=== PATIENT | female | born 1955 | race Caucasian/White ===

== ENCOUNTER → 2017-06-15 10:52 | Outpatient (CLI) | payer BC, SELFPAY ==
[2017-06-15 12:25] LABS: Amphetamine Urine VISTA NEGATIVE (<1000 ng/mL); Barbiturate Urine VISTA NEGATIVE (< 200 ng/mL); Benzodiazepine Urine VISTA NEGATIVE (< 200 ng/mL); Cocaine Urine VISTA NEGATIVE (< 300 ng/mL); Ecstacy Urine VISTA NEGATIVE (< 500 ng/mL); Methadone Urine VISTA NEGATIVE (< 300 ng/mL); PCP Urine VISTA NEGATIVE (< 25 ng/mL); THC Urine VISTA NEGATIVE (< 50 ng/mL); Vista UDS pH Range 6
== END ==
PROVIDERS: Family Provider Family Medicine; PCP Family Medicine; Visit Provider Anesthesiology Pain Medicine
DX: F11.20 Opioid dependence, uncomplicated (principal)
CPT/HCPCS: 80307

== ENCOUNTER → 2018-02-20 10:46 | Outpatient (CLI) | payer BC, SELFPAY ==
[2016-05-26 21:24] VITALS: BMI 25.2
[2018-02-20 11:59] LABS: Amphetamine Urine VISTA NEGATIVE (<1000 ng/mL); Barbiturate Urine VISTA NEGATIVE (< 200 ng/mL); Benzodiazepine Urine VISTA NEGATIVE (< 200 ng/mL); Cocaine Urine VISTA NEGATIVE (< 300 ng/mL); Ecstacy Urine VISTA NEGATIVE (< 500 ng/mL); Methadone Urine VISTA NEGATIVE (< 300 ng/mL); PCP Urine VISTA NEGATIVE (< 25 ng/mL); THC Urine VISTA NEGATIVE (< 50 ng/mL); Vista UDS pH Range 6
== END ==
PROVIDERS: Family Provider Family Medicine; PCP Family Medicine; Referring Provider Anesthesiology Pain Medicine; Visit Provider Anesthesiology Pain Medicine
DX: F11.20 Opioid dependence, uncomplicated (principal)
CPT/HCPCS: 80307

== ENCOUNTER 2018-06-12 14:02 | Emergency (ER) | payer BC, SELFPAY ==
[2018-06-12 14:03] VITALS: BP 153/82; PULSE 89; RESP 16; TEMP 35.8; O2SAT 94; BMI 24.7
--- NOTE | 2018-06-12 14:36 | ED.VIS.GEN ---
History of Present Illness Chief Complaint: Weakness Detail of Chief Complaint: Orthostatic symptoms and nausea Informant: Patient, Significant Other Onset: Yesterday Context: Sudden Onset Timing: Continuous - Nausea is continuous, Intermittent - Lightheadedness with standing Quality: Lightheadedness not vertigo Location: Residents Current Severity: Mild Maximum Severity: Moderate Worsened by: Standing Relieved by: Supine position Associated Symptoms: No cardiac, respiratory, constitutional or urologic symptoms Narrative: Patient presents with chief complaint of orthostatic symptoms that are intermittent and present when she stands. She also complains of persistent nausea. She denies vomiting or diarrhea. She denies dysuria, frequency, urgency or hematuria. She denies fever, chills or night sweats. Denies weight gain or weight loss. She denies ocular, visual auditory symptoms. She denies cardiac or respiratory symptoms. Prior similar symptoms: No Recent Illness/Hospitalization: Yes - Past Medical History (1) Slade's esophagus Status: Chronic (2) Generalized anxiety disorder Status: Chronic (3) History of Ataxia of unclear etiology Status: Chronic (4) History of DVT (deep vein thrombosis) Status: Chronic (5) History of fibromyalgia Status: Chronic (6) History of hypertension Status: Chronic (7) History of migraine Status: Chronic (8) History of ulcerative colitis Status: Chronic (9) Tobacco use disorder Status: Chronic Past Medical History - Allergies and Home Meds Allergies/Adverse Reactions: Allergies Antihistamines - Alkylamine Allergy (Verified 06/12/18 14:05) Hives ondansetron HCl [From Zofran] Allergy (Verified 06/12/18 14:05) Hives promethazine HCl [From Phenergan] Allergy (Verified 06/12/18 14:05) Hives adhesive Adverse Reaction (Intermediate, Verified 06/12/18 14:05) Other Primary Care Physician: Lauro Martinez MD [Primary Care Provider] - Prior records reviewed: Yes Surgical History: appendectomy, hysterectomy Smoking Status: Current every day smoker Review of Systems General: Denies: Chills, Fever, Malaise, Sweats Eyes: Denies: Visual changes - bilaterally, Blurred Vision - bilaterally ENT: Denies: Rhinorrhea, Sore throat Cardiovascular: Denies: Chest pain, Palpitations, Heart racing, -, - Respiratory: Denies: Dyspnea, Cough, Sputum, Dyspnea on exertion, Orthopnea, Paroxysmal nocturnal dyspnea, -, - Gastrointestinal: Reports: Nausea. Denies: Abdominal pain, Vomiting, Diarrhea, Constipation, Melena, Hematochezia, -, - Musculoskeletal: Denies: Myalgias, Arthralgias, Neck pain, Back pain, Swelling, Extremity Pain Skin: Denies: Rash, Wounds Neurological: Reports: Weakness. Denies: Headache, Parasthesia, Numbness Endocrine: Denies: Polyuria, Polydipsia Hematologic: Denies: Easy bruising, Easy bleeding Allergy: Denies: Uticaria, Swelling of the mouth Physical Exam Vital Signs/Narrative: Vital Signs Temp Pulse Resp BP Pulse Ox 06/12/18 14:03 96.5 F L 89 16 153/82 H 94 Inital Vital Signs reviewed: Yes General: Well nourished, Well developed, No Acute Distress Head: Normocephalic, Atraumatic Eyes: Perrl, EOMI. Negative for: Pale conjunctiva, Scleral icterus ENT: No rhinorrhea, Dry mucous membranes Neck: Supple, Nontender Cardiovascular: Regular rate, Regular rhythm, No murmurs Respiratory: No distress, CTA bilaterally, Chest nontender Abdomen: Soft, Nontender, Nondistended, Normal bowel sounds Back: Nontender, Normal Inspection Extremities: Nontender, No edema Skin: Normal color, No rash Neurological: Alert, Oriented x3, Cranial nerves II-XII grossly intact, Normal Strength, Normal Sensation Psychological: Normal affect, Normal Mood Diagnostic/Tx/Re-eval Laboratory Results 06/12/18 06/12/18 14:30 14:30 WBC 10.9 RBC 5.37 Hgb 15.1 H Hct 46.0 MCV 85.7 MCH 28.1 MCHC 32.8 RDW 15.3 H RDW Differential 48.3 H Plt Count 441 MPV 9.9 Immature Gran % (Auto) 0.200 Neut % (Auto) 77.3 H Lymph % (Auto) 15.8 L [place] % (Auto) 5.7 Eos % (Auto) 0.7 Baso % (Auto) 0.3 Absolute Neuts (auto) 8.4 H Absolute Lymphs (auto) 1.71 Total Counted Not Reportable Sodium 135 L Potassium 3.6 Chloride 103 Carbon Dioxide 28.0 Anion Gap 4 L BUN 4 L Creatinine 0.79 Estim Creat Clear Calc 58.40 Est GFR (MDRD) Af Amer 95 Est GFR (MDRD) Non-Af 78 BUN/Creatinine Ratio 5.1 L Glucose 114 H Calcium 8.9 - Medical Decision Making Clinically patient is dehydrated. This probably is examination of her orthostatic symptoms. 1 L of normal saline was ordered. Basic metabolic panel was obtained to assess electrode, renal function and CO2 anion gap. CBC was obtained to assess for anemia. Patient's laboratory results are unremarkable. Patient improved after IV fluids. Plan is to discharge to home. ED Disposition - Plan for ED Patient: Disposition: Home or Assisted Living Diagnosis: Orthostatic lightheadedness, Nausea, Mild dehydration Instructions: ED Weakness [facility] Referrals: Lauro Martinez MD [Primary Care Provider] - 3-5 Days
[2018-06-12] MEDS: 0.9% Normal Saline 1,000 ML 1000 ML IV (15:04)
[2018-06-12 15:10] VITALS: RESP 14
[2018-06-12 15:14] LABS: Absolute Lymphocyte Count 1.71 X10^3/ul (0.83-4.51); Absolute Neutrophil Count 8.4 X10^3/uL (2.0-7.7); Basophil# 0.03 X10^3/uL; Basophil% 0.3 % (0-1); Eosinophil# 0.08 X10^3/uL; Eosinophils% 0.7 % (0-5); Hemoglobin 15.1 g/dl (12.0-15.0); Lymphocyte # 1.71 X10^3/ul (4.0); Lymphocyte % 15.8 % (19-41); Mean Corp Hgb Conc 32.8 g/gl (32-36); Mean Corpuscular Hgb 28.1 pg (27.0-32.0); Mean Corpuscular Volume 85.7 fL (81-99); Mean Platelet Vol. 9.9 fl (6.2-12.0); Monocyte# 0.62 X10^3/uL; Monocyte% 5.7 % (0-10); Neutrophil # 8.39 X10^3/uL (2.7-7.7); Neutrophil % 77.3 % (47-70); Platelet Count 441 K/mm3 (150-450); RBC Distribution Width CV 15.3 % (11.6-14.6); RBC Distribution Width SD 48.3 fl (35.1-43.9); Red Blood Count 5.37 M/mm3 (4.2-5.4); White Blood Count 10.9 K/mm3 (4.4-11.0)
[2018-06-12 15:19] LABS: POSITIVE COUNT NO; POSITIVE DIFFERENTIAL NO; POSITIVE MORPHOLOGY NO
[2018-06-12 15:30] LABS: Anion Gap 4 (5-15); BUN 4 mg/dL (7-18); BUN/Creat Ratio 5.1 RATIO (10-20); Calcium,Total 8.9 mg/dL (8.5-10.1); Chloride 103 mmol/L (98-107); Creatinine, Serum 0.79 mg/dL (0.55-1.02); EST Glomerular Filtration Rate 78 mL/min (>60); Est Glom Filt Rate - Afr Amer 95 mL/min (>60); Glucose 114 mg/dL (74-106); Potassium 3.6 mmol/L (3.5-5.1); Sodium Level 135 mmol/L (136-145)
[2018-06-12 15:59] VITALS: BP 129/76; PULSE 70; RESP 17; O2SAT 100
== END 2018-06-12 16:01 | disposition home or self-care (01) ==
PROVIDERS: Emergency Provider Emergency Medicine; Family Provider Family Medicine; PCP Family Medicine
DX: R42 Dizziness and giddiness (principal); R11.0 Nausea; E86.0 Dehydration; F41.1 Generalized anxiety disorder; K22.70 Barrett's esophagus without dysplasia; I10 Essential (primary) hypertension; F17.200 Nicotine dependence, unspecified, uncomplicated; Z86.718 Personal history of other venous thrombosis and embolism
CPT/HCPCS: 80048; 85025; 99283; J7030; A4216

== ENCOUNTER → 2019-07-24 16:24 | Outpatient (CLI) | payer BC, SELFPAY ==
[2019-07-24 17:18] LABS: Amphetamine Urine VISTA NEGATIVE (<1000 ng/mL); Barbiturate Urine VISTA NEGATIVE (< 200 ng/mL); Benzodiazepine Urine VISTA NEGATIVE (< 200 ng/mL); Cocaine Urine VISTA NEGATIVE (< 300 ng/mL); Ecstacy Urine VISTA NEGATIVE (< 500 ng/mL); Methadone Urine VISTA NEGATIVE (< 300 ng/mL); PCP Urine VISTA NEGATIVE (< 25 ng/mL); THC Urine VISTA NEGATIVE (< 50 ng/mL); Vista UDS pH Range 6
== END ==
PROVIDERS: PCP Family Medicine; Referring Provider Anesthesiology Pain Medicine; Visit Provider Anesthesiology Pain Medicine
DX: F11.20 Opioid dependence, uncomplicated (principal)
CPT/HCPCS: 80307

== ENCOUNTER 2020-04-14 10:52 | Day surgery (SDC) | payer BC, SELFPAY ==
[2020-04-14] VITALS (7 sets, daily range): BP systolic 114–150; BP diastolic 68–86; PULSE 76–99; RESP 16–95; TEMP 36.2; O2SAT 94–100; BMI 23.6
--- NOTE | 2020-04-14 12:00 | IMM_PTH ---
PATIENT: SARAH DEUTSCH LOC: EN U#:[id number] AGE/SX: 65/F ROOM: RE04/14/[address]: Dr. Justino Mirza MD : 1955 BED: DIS: 04/14/2020 SPEC #: [id number] RECD: 04/15/20 09:36 STATUS: KISHOR REHandy #: [id number] RILEY: 04/14/20 12:[address]: Justino Mirza DEPT: IMMUNOHISTOCHEMISTRY RECD BY: Ynae Vargas ENTERED: 04/15/20 09:37 SP TYPE: IMMUNO OTHR DR: Dr. Lauro Martinez MD Tissues: B - Stomach, NOS Procedures: H Pylori (initial) PHYSICIAN & INSTITUTION [place] [id number] SPECIMEN INFORMATION: Tissue Source: B - Antrum biopsy Clinical Info: Slade's esophagus, abdomen pain, altered bowel habits Specimen Number: [id number] CPT code: 36586 METHODOLOGY: Deparaffinized sections of prefer/formalin-fixed tissue or PAP/DQ stained slides are incubated with monoclonal/polyclonal antibodies/oligonucleotide probes. Localization is made via biotin free immunoperoxidase method. Appropriate controls are performed and reacted as expected. Results on target cell population are indicated in the following table: RESULTS: ANTIBODY / CLONE RESULT Block B H Pylori (polyclonal) negative These tests were developed and their performance characteristics determined by [facility]. They may not have been cleared or approved by the U.S. Food and Drug Administration. The FDA has determined that such clearance or approval is not necessary. INTERPRETATION: B. Antrum, biopsy: Negative for Helicobacter pylori organisms. AM:jesse 04/16/2020
--- NOTE | 2020-04-14 12:00 | COLBX_PTH ---
PATIENT: SARAH DEUTSCH LOC: EN U#:[id number] AGE/SX: 65/F ROOM: RE04/14/[address]: Dr. Justino Mirza MD : 1955 BED: DIS: 04/14/2020 SPEC #: [id number] RECD: 04/14/20 13:44 STATUS: KISHOR REHandy #: [id number] RILEY: 04/14/20 12:[address]: Justino Mirza DEPT: SURGICAL PATHOLOGY RECD BY: Marissa Hodge ENTERED: 04/15/20 07:38 SP TYPE: COLON BX OTHR DR: Dr. Lauro Martinez MD Tissues: A - Small intestine biopsy B - Gastric mucous membrane C - Esophagus, NOS D - COLON BIOPSY Procedures: Surgery Specimen Level IV HEADER OPERATION: Colonoscopy, EGD ([facility] [place]) PRE-OP DIAGNOSIS: Slade's esophagus, abdomen pain, altered bowel habits TISSUE SUBMITTED: A - Small bowel biopsy, B - Antrum biopsy for histo and H. pylori, C - Distal esophagus biopsy, D - Random colonic biopsy MICROSCOPIC DIAGNOSIS A. Small bowel, biopsy: No significant pathologic change. B. Gastric antrum, biopsy: Mild chronic gastritis. C. Distal esophagus, biopsy: Gastroesophageal junction mucosa with mild chronic inflammation. No evidence of intestinal metaplasia. See comment. D. Colon, random biopsy: No pathologic change. AM:jesse 04/16/2020 COMMENT B. The results of immunohistochemistry for Helicobacter pylori will be reported separately ([id number]). C. Alcian blue/PAS stain with matched control supports the above diagnosis. MICROSCOPIC DESCRIPTION Slides are reviewed. GROSS DESCRIPTION A - Received in fixative is one container labeled with the patient's name and designated small bowel biopsy. The specimen consists of one irregular fragment of light olivo soft tissue that measures 0.5 x 0.3 x 0.1 cm. The specimen is totally submitted in one cassette. B - Received in fixative is one container labeled with the patient's name and designated antrum biopsy. The specimen consists of one irregular fragment of light olivo soft tissue that measures 0.4 x 0.3 x 0.1 cm. The specimen is totally submitted in one cassette. C - Received in fixative is one container labeled with the patient's name and designated distal esophagus biopsy. The specimen consists of multiple irregular fragments of light olivo soft tissue that in aggregate measure 0.5 x 0.5 x 0.1 cm. The specimen is totally submitted in one cassette. D - Received in fixative is one container labeled with the patient's name and designated random colonic biopsy. The specimen consists of multiple irregular fragments of light olivo soft tissue that in aggregate measure 2 x 0.5 x 0.1 cm. The specimen is totally submitted in one cassette. / SJ:rg 04/15/20 TC:3 CPT: 64977 x4, 11658
--- NOTE | 2020-04-14 12:26 | HP.PCM_ITS ---
History and Physical Date of Admission: 04/14/20 Esther Morin a 65 year old female who is a consultation requested by Herlinda Salazar PA-C for an opinion regarding abdominal pain and altered bowel habits. My final recommendations will be communicated back to the requesting provider by way of shared Medical record. The patient has been seen previously, but it was more than three years ago (2014). The patient denies a family history of colon cancer. The patient had a phone encounter Herlinda on 02/14/20, leading to this consultation. That note has been reviewed and part as follows: Patient states she was sick for the past week. Nausea, vomiting, diarrhea, abdominal pain. Does not want checked for covid again. States her son had exact same symptoms and he tested negative. The patient was seen by Dr. Vergara for upper endoscopy (Slade's) and colonoscopy (ischemic colitis) 03/02/16. The procedure report has been reviewed and findings as follows: EGD Impression: - Carmelo-Jaquez Grade II reflux esophagitis. Biopsied. - Normal stomach. Biopsied. - Normal examined duodenum. Colonoscopy Impression: - The quality of the bowel preparation was fair. Two 5 mm polyps at 20 cm proximal to the anus and at 30 cm proximal to the anus. Resected and retrieved. - Diverticulosis in the sigmoid colon and in the descending colon. FINAL DIAGNOSIS 1. Gastric antrum, biopsy (A) - Gastric antral mucosa with no significant diagnostic alteration. - No morphologic evidence of Helicobacter pylori organisms. 2. Distal esophagus and colon polyp from 30 cm, biopsies (B) - Colonic tubular adenoma. - Mildly inflamed cardiofundic-type mucosa and reactive squamous mucosa, negative for intestinal metaplasia or dysplasia. 3. Colon polyp at 20 cm, biopsy (C) - Fragments of hyperplastic polyp. I have reviewed the procedure and pathology reports, as well as the images, with the patient. Dr. Vergara recommended surveillance EGD in 2 years and surveillance colonoscopy in 5 years. Taking clopidogrel due to a stent and will be able to hold that for the procedure. She has a complicated medical history that includes a left sided colectomy in 2012. Multiple abdominal surgeries and lysis of adhesions. Presenting complaint: The patient presents today reporting that she only leaves the house for doctor's appointments. Taking pantoprazole 40mg twice a day. Taking compazine. Has had to increase the dose since December. It gives her some relief. No turmieric or high dose Zinc. Reporting my stomach is always unsettled, always gurgling and spasming. She has to have a bowel movement after eating. She might have to get up during the night to have a bowel movements. She will take a stool softener if she hasn't gone that day. No blood or black stool. She will take the Imodium if she has to go somewhere, but tries to limit that. Decreased appetite. She can feel full after a few bites. She might have a small snack throughout the day instead of eating a meal. REVIEW OF SYSTEMS: GENERAL: No weight loss, malaise or fevers RESPIRATORY: Asthma. Mild HUBERT. Negative for current issues CARDIOVASCULAR: Hypertension. Negative for chest pain or JO GI: As reported above RECORDING CLERK: Negative for abnormal vaginal bleeding, abnormal vaginal discharge. PSYCH:Anxiety and panic disorder MUSCULOSKELETAL: Fibromyalgia HEMATOLOGY/LYMPHOLOGY Negative for prolonged bleeding, bruising easily or swollen nodes ENDOCRINE: Negative for cold or heat intolerance, polyuria, polydipsia and goiter NEURO: Migraine headaches All other reviewed and negative other than HPI. PAST MEDICAL HISTORY PAST MEDICAL HISTORY Diagnosis Date ? Anxiety 12/11/2013 ? Asthma ? Atrioventricular block, unspecified Promus stent placed in 01/2008 ? Slade's esophagus ? Carpal tunnel syndrome ? Chronic interstitial cystitis ? Closed fracture of one or more phalanges of foot 06/12/2012 ? Coronary artery disease due to calcified coronary lesion 09/22/2014 [place] age 52; Stented ( last seen Dr. Rosario 2012) -- 01/25/08 ? Current use of proton pump inhibitor 07/06/2016 Mg checked 03/2017 ? Dysthymia 07/28/2015 ? Elevated fasting blood sugar 09/26/2014 ? Esophagitis, unspecified ? Essential hypertension 09/22/2014 ? Fibromyalgia FIBROMYALGIA -- patient stopped seeing Dr. Howard ? Gastroesophageal reflux disease without esophagitis 09/26/2014 Has break through symptoms if only does once a day. (talk to patient about being on omeprazole and plavix) ? History of bowel infarction Colon: S/P removal of 1ft. Cause not known ? Hypokalemia 03/05/2013 ? Infarction of colon (HCC) S/P removal of 1ft. Cause not known ? Inflammatory arthropathy ? Insomnia, unspecified 03/29/2006 ? Irritable bowel syndrome ? Left leg pain 03/05/2013 ? Low vitamin B12 level 03/05/2013 ? Migraine without aura and without status migrainosus, not intractable ? Mixed hyperlipidemia 01/19/2015 ? Mood disorder (HCC) 03/05/2013 ? Nocturnal hypoxia 03/05/2013 On O2 at night ? Obstructive sleep apnea 05/16/2013 Mild, no indication that treatment needed. ? Panic disorder 02/16/2010 ? Smoker 04/20/2009 Age 18 at onset 12-1 PPD ? Vitamin D deficiency 04/24/2009 PAST SURGICAL HISTORY PAST SURGICAL HISTORY Procedure Laterality Date ? APPENDECTOMY 2002 ? CARPAL TUNNEL 2002 x 2 ? CC PTCA STENT 01/25/2008 [facility] (jorge alberto) Promus stents ? COLECTOMY PARTIAL W ANASTOM 12/2012 left side ? COLONOSCOP W/ OR W/O BRSH SPEC 03/20/02 Colonoscopy ? COLONOSCOP W/ OR W/O BRSH SPEC 11/26/2007 Colonoscopy ? COLONOSCOP W/ OR W/O BRSH SPEC 02/24/11 normal colonoscopy ? COLONOSCOPY Dr. Molina - beatrice prior to the colectomy ? COLONOSCOPY N/A 03/02/2016 MAC ? CYSTO.PANENDO Cystoscopy ? CYSTOSCOPY,DIL BLADDER,LOCAL ANESTH ? D&C, DIAG AND/OR THERAPEUTIC Dilation & curettage ? EGD N/A 03/02/2016 MAC ? EGD W/O BRSH SPECIMEN W/BX 06/15/07 ? EGD W/O BRSH SPECIMEN W/BX 05/13/09 ? EGD W/O BRSH SPECIMEN W/BX 02/24/11 esophagitis, gastritis ? EGD W/O OR W/BRUSH/WASH 11/26/2007 EGD ? F HYSTERECTOMY 1992 ? LASIK 1999 ? PAST SURGICAL HISTORY OF 07/2004 left shoulder OR ? PAST SURGICAL HISTORY OF 1990 right shoulder OR ? PAST SURGICAL HISTORY OF 06/05/07 heart cath ? PAST SURGICAL HISTORY OF multiple multiple surgeries for adhesions (5-6) -- last about year 1999 ? PAST SURGICAL HISTORY OF 06/2012 broken toe ? REMOVAL OF OVARY/TUBE(S) Salpingo-oophorectomy ? RT HEART CATH mid july 2009 jorge alberto FAMILY HISTORY FAMILY HISTORY Problem Relation Age of Onset ? Heart Mother [place] age 65 ? Stroke Father TIA's ? Cancer Father lung ? Heart Sister stent placed age 50 ? Colon Cancer Other none CURRENT MEDICATIONS Current Outpatient Medications Medication Sig Dispense Refill ? prochlorperazine (COMPAZINE) 10 mg tablet Take 1 tablet by mouth every 6 hours as needed. 12 tablet 3 ? potassium chloride ER (K-DUR, KLOR-CON) 20 mEq tablet Take 1 tablet by mouth twice daily. 180 tablet 0 ? metoprolol succinate ER (TOPROL XL) 100 mg Take 1 tablet by mouth once daily. 90 tablet 1 ? busPIRone (BUSPAR) 15 mg tablet Take 1 tablet by mouth twice daily. ? hydrOXYzine HCl (ATARAX) 25 mg tablet TAKE 1/2 TO 1 TABLET BY MOUTH ONE TO TWO HOURS BEFORE BED 90 tablet 1 ? QUEtiapine (SEROQUEL) 100 mg tablet Take 3 tablets by mouth once daily. 270 tablet 1 ? pantoprazole DR (PROTONIX) 40 mg tablet Take 1 tablet by mouth twice daily. Take on empty stomach, 1/2 hr before meal. 180 tablet 1 ? atorvastatin (LIPITOR) 80 mg tablet Take 1 tablet by mouth once daily. 90 tablet 1 ? citalopram (CELEXA) 40 mg tablet Take 1 tablet by mouth once daily. 90 tablet 3 ? clopidogrel (PLAVIX) 75 mg tablet Take 1 tablet by mouth once daily. 90 tablet 3 ? albuterol HFA (PROVENTIL HFA, VENTOLIN HFA) 90 mcg/actuation inhaler Inhale 2 Puffs as instructed four times daily as needed. FOR WHEEZING AND SHORTNESS OF BREATH. 1 Inhaler 5 ? nitroglycerin sublingual (NITROQUICK) 0.4 mg SL tablet Dissolve 1 tablet under the tongue as needed. DISSOLVE ON TONGUE FOR CHEST PAIN. IF NO PAIN RELIEF, CALL 911 1 Bottle of 25 1 ? galcanezumab-gnlm 120 mg/mL subcutaneous pen injector (EMGALITY) Inject 1 Pen subcutaneously once every month. Refrigerate. Do not shake. ? Cholecalciferol, Vitamin D3, 2,000 unit cap Take 1 capsule by mouth once daily. ? albuterol (PROVENTIL) 2.5 mg /3 mL (0.083 %) nebulizer solution Use 3 mL via nebulizer every 4 hours as needed for Wheezing/Shortness of Breath. Use over 5- 15minutes. 25 Vial 3 ? aspirin, enteric coated (ECOTRIN LOW STRENGTH) 81 mg EC tablet Take 1 tablet by mouth once daily. 90 tablet 3 ? COMPOUNDED PRESCRIPTION Portable nebulizer unit Dx: 493.90 # one with no refill 1 Device 0 ? MULTIVITAMIN TABLET Take one(1) tablet daily. 0 ? CALCIUM 600 TABLET Take one(1) tablet two(2) times daily. 0 No current facility-administered medications for this visit. Patient is . She smokes 1-2 ppd. Reports her alcohol use as never. PHYSICAL EXAMINATION: Blood pressure 138/82, pulse 78, height 157.6 cm (5' 2.05), weight 60.3 kg (133 lb), SpO2 94 %. General Appearance: Well appearing, alert, in no acute distress, well-hydrated, well nourished. Skin: Skin color, texture, turgor normal, no suspicious rashes or lesions. Head: Normocephalic, no abnormalities. Eyes: Anicteric sclera. Neck: Supple, no adenopathy. Lungs: Lungs clear to auscultation. Heart: RRR without murmur. Abdomen: Abdomen soft, non-tender. Bowel sounds normal. No masses, organomegaly. Extremities: No deformities, edema. Peripheral Pulses: Normal. Neurologic: Gait normal. Sensation grossly intact. Impression: Slade's esophagus 2)altered bowel lhabits Plan: The patient will be scheduled for an upper endoscopy as well as a colonoscopy. Preparation for the procedures, using Miralax prep as the laxative, have been explained in detail. The risks, benefits, anticipated outcomes and possible complications were mentioned, including including failure to complete the endoscopy and perforation. I explained the procedure in understandable terms and the patient was given printed material concerning the planned procedure. The patient had the opportunity to ask questions concerning the planned procedure. The patient freely consents to the planned procedure. The patient is scheduled for a procedure at [facility]. I have explained that his/her health and safety, as well as that of our staff is important. The risk of exposure to, or potential harm posed by the COVID-19 virus with having a procedure at this time is as minimal as possible. Measures are being taken to minimize any potential risk of infection. I have explained that he/she will see that the staff will be wearing masks and gloves. The patient's temperature will be taken on arrival, they will be asked a series of questions to reassess current wellness, and asked to use hand corporate compliance manager foam. The bed areas are cleaned and the procedure rooms are thoroughly disinfected between patients. Procedure rooms will be alternated to give the disinfection more than enough time to ensure adequate protection for all involved. The patient is encouraged to call with any questions or concerns, or should there be any change in health status between now and the scheduled procedure. I have personally interviewed and examined this patient. I have read the information that the PULPWOOD CONTRACTOR documented in this encounter. I spent 30 minutes in the visit, with more than 50% of the total [id number] time of the visit in counseling / coordination of care. Astrid Ortega RN LOST CHARGE CARD CLERK.SHELLFISH GROWER I have re-examined the patient. There are no clinical changes since date of exam.
--- NOTE | 2020-04-14 12:55 | OP.EGD_ITS ---
Patient Name: Esther Morin Procedure Date: 04/14/2020 11:49 AM Date of : 1955 Age: 65 Procedure: Upper GI endoscopy Indications: Slade's esophagus, Nausea Providers: Justino Mirza MD Referring MD: Lauro Martinez MD Medicines: See the Anesthesia note for documentation of the administered medications Patient Profile: This is a 65 year old female. Refer to note in patient chart for documentation of history and physical. Complications: No immediate complications. Procedure: Pre-Anesthesia Assessment: - Prior to the procedure, a History and Physical was performed, and patient medications and allergies were reviewed. The patient's tolerance of previous anesthesia was also reviewed. The risks and benefits of the procedure and the sedation options and risks were discussed with the patient. All questions were answered, and informed consent was obtained. Prior Anticoagulants: The patient has taken Plavix (clopidogrel), last dose was 5 days prior to procedure. ASA Grade Assessment: III - A patient with severe systemic disease. After reviewing the risks and benefits, the patient was deemed in satisfactory condition to undergo the procedure. After obtaining informed consent, the endoscope was passed under direct vision. Throughout the procedure, the patient's blood pressure, pulse, and oxygen saturations were monitored continuously. The gastroscope was introduced through the mouth, and advanced to the second part of duodenum. The upper GI endoscopy was accomplished without difficulty. The patient tolerated the procedure well. Scope In: 12:31:12 PM Scope Out: 12:37:37 PM Total Procedure Duration Time 0 hours 6 minutes 25 seconds Findings: Non-severe esophagitis with no bleeding was found at the gastroesophageal junction. Biopsies were taken with a cold forceps for histology. Localized mild inflammation characterized by erythema and linear erosions was found in the prepyloric region of the stomach. Biopsies were taken with a cold forceps for Helicobacter pylori testing. The examined duodenum was normal. Biopsies for histology were taken with a cold forceps for evaluation of celiac disease. Impression: - Non-severe reflux esophagitis. Rule out Slade's esophagus. Biopsied. - Gastritis. Biopsied. - Normal examined duodenum. Biopsied. Recommendation: - Await pathology results. - Repeat upper endoscopy in 3 years for surveillance. - Return to nurse practitioner in 1 week. Coretta Ortega - Continue present medications. - Resume Plavix (clopidogrel) at prior dose tomorrow. Procedure Code(s): --- Professional --- 97149, Esophagogastroduodenoscopy, flexible, transoral; with biopsy, single or multiple Diagnosis Code(s): --- Professional --- K21.0, Gastro-esophageal reflux disease with esophagitis K29.70, Gastritis, unspecified, without bleeding K22.70, Slade's esophagus without dysplasia R11.0, Nausea CPT copyright 2017 [employer]. All rights reserved. The codes documented in this report are preliminary and upon automotive shop foreman review may be revised to meet current compliance requirements. MD Justino Fountain MD 04/14/2020 12:55:24 PM This report has been signed electronically. Number of Addenda: 0 Note Initiated On: 04/14/2020 11:49 AM
--- NOTE | 2020-04-14 12:56 | OP.CCLET_ITS ---
04/14/2020 Lauro Martinez MD Re : Upper GI endoscopy procedure for Esther Morin Dear Dr. Martinez This procedure was performed on Tuesday, April 14, 2020. My impressions and recommendations are as follows: Impressions : - Non-severe reflux esophagitis. Rule out Slade's esophagus. Biopsied. - Gastritis. Biopsied. - Normal examined duodenum. Biopsied. Recommendations : - Await pathology results. - Repeat upper endoscopy in 3 years for surveillance. - Return to nurse practitioner in 1 week. Coretta Ortega - Continue present medications. - Resume Plavix (clopidogrel) at prior dose tomorrow. My findings are described in the full procedure note, which is enclosed. If I can be of further assistance, please feel free to contact me at Doctor phone number(s): , Fax: [phone], Work: . Sincerely, MD Justino Fountain MD 04/14/2020 12:55:24 PM This report has been signed electronically.
--- NOTE | 2020-04-14 13:00 | OP.COLON_ITS ---
Patient Name: Esther Morin Procedure Date: 04/14/2020 12:37 PM Date of : 1955 Age: 65 Procedure: Colonoscopy Indications: Clinically significant diarrhea of unexplained origin Providers: Justino Mirza MD Referring MD: Lauro Martinez MD Medicines: See the Anesthesia note for documentation of the administered medications Patient Profile: This is a 65 year old female. Refer to note in patient chart for documentation of history and physical. Last Colonoscopy: February 2016. Complications: No immediate complications. Procedure: Pre-Anesthesia Assessment: - Prior to the procedure, a History and Physical was performed, and patient medications and allergies were reviewed. The patient's tolerance of previous anesthesia was also reviewed. The risks and benefits of the procedure and the sedation options and risks were discussed with the patient. All questions were answered, and informed consent was obtained. Prior Anticoagulants: The patient has taken Plavix (clopidogrel), last dose was 5 days prior to procedure. ASA Grade Assessment: III - A patient with severe systemic disease. After reviewing the risks and benefits, the patient was deemed in satisfactory condition to undergo the procedure. After I obtained informed consent, the scope was passed under direct vision. Throughout the procedure, the patient's blood pressure, pulse, and oxygen saturations were monitored continuously. The adult colonoscope was introduced through the anus and advanced to the cecum, identified by appendiceal orifice and ileocecal valve. The colonoscopy was performed without difficulty. The patient tolerated the procedure well. The quality of the bowel preparation was good. Scope In: 12:38:44 PM Scope Withdrawal Time 0 hours 6 minutes 32 seconds Scope Out: 12:49:09 PM Total Procedure Duration Time 0 hours 10 minutes 25 seconds Findings: The colon (entire examined portion) appeared normal. Biopsies for histology were taken with a cold forceps from the entire colon for evaluation of microscopic colitis. Non-bleeding internal hemorrhoids were found during retroflexion. The hemorrhoids were mild and small. A few small-mouthed diverticula were found in the sigmoid colon. No biopsies or other specimens were collected for this exam. The exam was otherwise without abnormality. The mucosa of her colon looked entirely normal. There is nothing that seemed abnormal. Impression: - The entire examined colon is normal. Biopsied. - Non-bleeding internal hemorrhoids. - Diverticulosis in the sigmoid colon. No specimens collected. - The examination was otherwise normal. Recommendation: - Discharge patient to home. - Resume previous diet. - Continue present medications. - Await pathology results. - Repeat colonoscopy in 10 years for screening purposes. - Return to nurse practitioner in 1 week. Coretta Ortega Procedure Code(s): --- Professional --- 92232, Colonoscopy, flexible; with biopsy, single or multiple Diagnosis Code(s): --- Professional --- K64.8, Other hemorrhoids R19.7, Diarrhea, unspecified K57.30, Diverticulosis of large intestine without perforation or abscess without bleeding CPT copyright 2017 [employer]. All rights reserved. The codes documented in this report are preliminary and upon labor relations consultant review may be revised to meet current compliance requirements. MD Justino Fountain MD 04/14/2020 1:00:08 PM This report has been signed electronically. Number of Addenda: 0 Note Initiated On: 04/14/2020 12:37 PM
--- NOTE | 2020-04-14 13:00 | OP.CCLET_ITS ---
04/14/2020 Lauro Martinez MD Re : Colonoscopy procedure for Esther Morin Dear Dr. Martinez This procedure was performed on Tuesday, April 14, 2020. My impressions and recommendations are as follows: Impressions : - The entire examined colon is normal. Biopsied. - Non-bleeding internal hemorrhoids. - Diverticulosis in the sigmoid colon. No specimens collected. - The examination was otherwise normal. Recommendations : - Discharge patient to home. - Resume previous diet. - Continue present medications. - Await pathology results. - Repeat colonoscopy in 10 years for screening purposes. - Return to nurse practitioner in 1 week. Coretta Ortega My findings are described in the full procedure note, which is enclosed. If I can be of further assistance, please feel free to contact me at Doctor phone number(s): , Fax: [phone], Work: . Sincerely, MD Justino Fountain MD 04/14/2020 1:00:08 PM This report has been signed electronically.
[2020-04-14] MEDS: Lactated Ringers 1,000 ML 100 ML IV (13:13)
== END 2020-04-14 13:41 | disposition home or self-care (01) ==
LOC: EN 10:53 → AC 10:53
PROVIDERS: PCP Family Medicine; Referring Provider Family Medicine; Visit Provider Surgery
PROC: 0DJD8ZZ Inspection of Lower Intestinal Tract, Via Natural or Artificial Opening Endoscopic (ICD-10-PCS; CPT 45378; principal; 2020-04-14 11:55)
DX: K22.70 Barrett's esophagus without dysplasia (principal); K21.00 Gastro-esophageal reflux disease with esophagitis, without bleeding; K29.70 Gastritis, unspecified, without bleeding; R19.7 Diarrhea, unspecified; K64.8 Other hemorrhoids; K57.30 Diverticulosis of large intestine without perforation or abscess without bleeding; K29.50 Unspecified chronic gastritis without bleeding; G47.33 Obstructive sleep apnea (adult) (pediatric); J45.909 Unspecified asthma, uncomplicated; E78.2 Mixed hyperlipidemia; F34.1 Dysthymic disorder; F41.0 Panic disorder [episodic paroxysmal anxiety]; G43.009 Migraine without aura, not intractable, without status migrainosus; I10 Essential (primary) hypertension; I25.10 Atherosclerotic heart disease of native coronary artery without angina pectoris; F17.210 Nicotine dependence, cigarettes, uncomplicated; M79.7 Fibromyalgia; Z79.82 Long term (current) use of aspirin; Z79.02 Long term (current) use of antithrombotics/antiplatelets; Z90.710 Acquired absence of both cervix and uterus; Z90.721 Acquired absence of ovaries, unilateral; Z95.5 Presence of coronary angioplasty implant and graft
CPT/HCPCS: 43239; 45380; 87426; 88305; 88342; C9803; J7120

== ENCOUNTER 2020-04-21 08:33 | Outpatient (RCR) | payer BC, SELFPAY ==
[2020-04-14 11:10] VITALS: BMI 23.6
[2020-04-21] MEDS: COVID-19 VACC, MRNA(PFIZER)/PF 30 MCG/0.3 ML SYRINGE IM (11:48)
[2020-05-12] MEDS: COVID-19 VACC, MRNA(PFIZER)/PF 30 MCG/0.3 ML SYRINGE IM (11:37)
== END 2020-04-21 23:59 ==
LOC: IMMUN 08:33
PROVIDERS: PCP Family Medicine; Visit Provider Family Medicine
DX: Z23 Encounter for immunization (principal)
CPT/HCPCS: 0001A; 0002A; 91300

== ENCOUNTER → 2020-04-22 12:59 | Outpatient (CLI) | payer BC, SELFPAY ==
[2020-04-14 11:10] VITALS: BMI 23.6
[2020-04-22 13:45] LABS: Amphetamine Urine VISTA NEGATIVE (<1000 ng/mL); Barbiturate Urine VISTA NEGATIVE (< 200 ng/mL); Benzodiazepine Urine VISTA NEGATIVE (< 200 ng/mL); Cocaine Urine VISTA NEGATIVE (< 300 ng/mL); Ecstacy Urine VISTA NEGATIVE (< 500 ng/mL); Methadone Urine VISTA NEGATIVE (< 300 ng/mL); PCP Urine VISTA NEGATIVE (< 25 ng/mL); THC Urine VISTA NEGATIVE (< 50 ng/mL); Vista UDS pH Range 6
== END ==
PROVIDERS: PCP Family Medicine; Referring Provider Anesthesiology Pain Medicine; Visit Provider Anesthesiology Pain Medicine
DX: F11.20 Opioid dependence, uncomplicated (principal)
CPT/HCPCS: 80307

== ENCOUNTER → 2020-09-03 13:42 | Outpatient (CLI) | payer BC, SELFPAY ==
[2020-04-14 11:10] VITALS: BMI 23.6
--- NOTE | 2020-09-03 13:45 | CT_ITS ---
STUDY: LOW DOSE CT LUNG CANCER SCREENING REASON FOR EXAM: Female, 65 years old. 48 year smoker, 1-2 pack per day. Hypertension RADIATION DOSAGE (If Supplied By Facility): CTDIvol = ( 1.59 ) mGy, DLP = ( 50.43 ) mGycm TECHNIQUE: No contrast was administered. Low dose technique was utilized (average mAS-38 and kVp 120). 1.25 mm axial source images with a slice interval of 1.25-mm were reconstructed in lung windows. 2.5 mm axial source images with a slice interval of 2.5-mm were reconstructed in lung windows. 5.0 mm axial source images with a slice interval of 5.0-mm were reconstructed in soft tissue windows. Nodule measured using lung windows on PACS and/or independent workstation with automated measurement of minimum and maximum diameter. Nodule measurement reported as average diameter rounded to the nearest whole number. Growth is defined as an increase ins size of greater than 1.5 mm. COMPARISON: None. FINDINGS: There is underlying emphysema. Chronic interstitial changes in both lung gibbons with nonspecific pleural thickening. No organized infiltrate. There are noncalcified nodules in the left lower lobe on axial image 128 measuring 5.6 mm and a 1.6 cm pleural-based nodule on image 153. There is a pleural-based nodule in the right medial lung base on axial image 176 measuring 0.7 cm. Since there are no previous studies available for comparison, further evaluation of these nodules with PET/CT scan is recommended to determine if metabolic activity is present. There are no suspicious bulky lymph nodes. There are calcifications in the thoracic aorta without aneurysm. There are calcified coronary vessels. No pleural or pericardial effusions. CT/Low Dose CT Lung Screening IMPRESSION: Lung-RADS category 4B - Chest CT with or without contrast, PET/CT and/or tissue sampling can be obtained depending on the probability of malignancy and comorbidities. IMPORTANT NOTES FOR USE: ACR Lung-RADS Version 1.1 Assessment Categories Release Date: 2018 Category: Coded 0-4 bases on nodule(s) with highest degree of suspicion. Negative screen is defined as categories 1 and 2; a positive screen is defined as categories 3 and 4. Category 3 and 4A nodules that are unchanged on interval CT should be coded as category 2, and individuals returned to screening in 12 months. Category 4X: Category 3 or 4 nodules with additional imaging findings that increase the suspicion of lung cancer, such as spiculation, GGN that doubles in size in 1 year, enlarged lymph notes, etc. Category Modifiers: S (significant finding unrelated to lung cancer) Electronically Signed: Jay Esparza MD at 8:45 EDT , Service support ,
== END ==
PROVIDERS: PCP Family Medicine; Referring Provider Family Medicine; Visit Provider Family Medicine
DX: Z12.2 Encounter for screening for malignant neoplasm of respiratory organs (principal); F17.200 Nicotine dependence, unspecified, uncomplicated
CPT/HCPCS: 71271

== ENCOUNTER → 2020-10-13 12:30 | Outpatient (CLI) | payer BC, SELFPAY ==
[2020-10-13 15:11] LABS: Amphetamine Urine VISTA NEGATIVE (<1000 ng/mL); Barbiturate Urine VISTA NEGATIVE (< 200 ng/mL); Benzodiazepine Urine VISTA NEGATIVE (< 200 ng/mL); Cocaine Urine VISTA NEGATIVE (< 300 ng/mL); Ecstacy Urine VISTA NEGATIVE (< 500 ng/mL); Methadone Urine VISTA NEGATIVE (< 300 ng/mL); PCP Urine VISTA NEGATIVE (< 25 ng/mL); THC Urine VISTA NEGATIVE (< 50 ng/mL); Vista UDS pH Range 5
== END ==
PROVIDERS: PCP Family Medicine; Referring Provider Anesthesiology Pain Medicine; Visit Provider Anesthesiology Pain Medicine
DX: F11.20 Opioid dependence, uncomplicated (principal)
CPT/HCPCS: 80307

== ENCOUNTER → 2020-11-03 15:33 | Outpatient (CLI) | payer BC, SELFPAY ==
--- NOTE | 2020-11-03 14:30 | PET_ITS ---
EXAMINATION: FDG PET-CT INDICATIONS: A 65-year-old female with reported history of pulmonary nodularity. COMPARISON EXAMINATION: CT of the chest report dated 09/03/20 TECHNIQUE: Following the intravenous administration of 13.47 mCi of F-18 deoxyglucose via the left wrist, multiplanar image acquisitions of the neck, chest, abdomen and pelvis to level of mid thigh, obtained at one hour post radiopharmaceutical administration contemporaneously interpreted with the current CT of the neck, chest, abdomen and pelvis, to level of mid thigh, dated 11/03/[address] of the chest report dated 09/03/20 reveals: BLOOD GLUCOSE LEVEL:?? 124 mg/dl?HEIGHT:?66 inches?WEIGHT: 169 lbs. FINDINGS: 1. There is no quantitative scintigraphic evidence of abnormal increased glucose metabolism correlate with a non-calcified pleural-based density noted in the right lower anteromedial hemithorax-medial segment right middle lobe on review of CT of the thorax dated 11/03/20. 2. Normal physiologic distribution of the radiopharmaceutical is apparent in the hepatic and splenic parenchyma, both renal units, bladder and visualized intestinal tract. The visualized portion of the cerebral cortical-subcortical structures demonstrate symmetric and preserved glucose metabolism. Diffuse radiopharmaceutical concentration is noted in all four quadrants of the abdomen and pelvis. Facilitated tracer uptake is observed in the anterior neck, laryngeal structures extending from the anterior commissure to the arytenoid cartilage bilaterally without evidence of soft tissue thickening most consistent with physiologic radiopharmaceutical concentration. Pertinent CT findings are as follows: CHEST: There is atherosclerotic calcification defined in the thoracic aorta without evidence of dilatation-aneurysm formation. Coronary arterial calcification is observed. Atelectatic changes are defined in the left lower anterior lung. ABDOMEN AND PELVIS: There is borderline fatty metamorphosis-steatosis defined in the hepatic parenchyma. There is atherosclerotic calcification defined in the abdominal aorta without evidence of dilatation-aneurysm formation. Pelvic arterial calcification is demonstrated. Right and left inguinal soft tissue densities with fatty hilus are ametabolic. Apparent postsurgical change is manifest in the left lower anterior abdominal mesentery without evidence of increased tracer uptake. Cortical cyst formation is encountered in the left kidney. SKELETAL: Degenerative changes are noted in the cervical, thoracic and lumbar spine without evidence of increased radiopharmaceutical concentration. PET/PET/CT Tumor Base -Thigh Init IMPRESSION: 1. NEGATIVE EXAMINATION. There is no quantitative scintigraphic evidence of abnormal increased glucose metabolism to correlate with a non-calcified pleural-based density noted in the right lower anteromedial hemithorax-medial segment right middle lobe on review of CT of the thorax dated 11/03/20. 2. Anatomic stability may be ensured in the ametabolic non-calcified pleural-based density noted in the right lower anteromedial hemithorax-medial segment right middle lobe with repeat FDG PET-CT imaging and/or CT of the chest in 3-6 months if clinically indicated. (Rigoberto, Seminars in Thoracic and Cardiovascular Surgery 14:292, 2001). Electronic Signature Ken Mark D.O. Accurate Quantification of SUVs for this report are calculated using the exclusive [employer]. (U.S. Patent No. 10, [id number] 983). Standardization and correction of the FDG SUV metric via [employer] technology allow for vendor non-specific objective quantitative examination comparison and optimization of the sensitivity and specificity of the FDG PET-CT examination. Electronically Signed: Ken Mark DO at 22:44 EDT Tel , Service support ,
== END ==
LOC: ONC 15:34
PROVIDERS: PCP Family Medicine
DX: R91.1 Solitary pulmonary nodule (principal)
CPT/HCPCS: 78815; A9552

== ENCOUNTER → 2021-01-06 15:58 | Outpatient (CLI) | payer MEDICARE, OTHER, SELFPAY ==
[2021-01-06 17:18] LABS: Amphetamine Urine VISTA NEGATIVE (<1000 ng/mL); Barbiturate Urine VISTA NEGATIVE (< 200 ng/mL); Benzodiazepine Urine VISTA NEGATIVE (< 200 ng/mL); Cocaine Urine VISTA NEGATIVE (< 300 ng/mL); Ecstacy Urine VISTA NEGATIVE (< 500 ng/mL); Methadone Urine VISTA NEGATIVE (< 300 ng/mL); PCP Urine VISTA NEGATIVE (< 25 ng/mL); THC Urine VISTA NEGATIVE (< 50 ng/mL); Vista UDS pH Range 5
== END ==
PROVIDERS: PCP Family Medicine; Visit Provider Anesthesiology Pain Medicine
DX: F11.20 Opioid dependence, uncomplicated (principal)
CPT/HCPCS: 80307

== ENCOUNTER 2021-02-19 17:33 | Emergency (ER) | payer MEDICARE, OTHER, SELFPAY ==
[2021-02-19 17:33] VITALS: BP 159/89; PULSE 91; RESP 18; TEMP 35.3; O2SAT 97; BMI 24.7
[2021-02-19 19:44] VITALS: RESP 17
[2021-02-19] MEDS: Ketorolac 15 MG/ML Vial IV (20:05)
[2021-02-19] MEDS: Metoclopramide 10 MG/2 ML Vial IV (20:05)
[2021-02-19] MEDS: DiphenhydrAMINE 50 MG/ML Syringe 25 MG IV (20:05)
[2021-02-19 20:08] VITALS: BP 163/88; RESP 17
--- NOTE | 2021-02-19 20:26 | EX.ED.VIS.HA ---
HPI History of Present Illness Chief Complaint: Headache Detail of Chief Complaint: Patient has her classic migraine headache. Informant: patient Onset/Context/Timing Onset: Days Context: Gradual Timing: Continuous and Waxes and wanes Quality -Headache: Positive for Dull and Throbbing Location: Unilateral Current Severity: Moderate Maximum Severity: Severe Worsened by: Sonophobia and photophobia Relieved by: Nothing Associated Symptoms/Injury Associated Symptoms: Positive for Nausea and Photophobia; Negative for Fever, Vomiting, Sore Throat, Sinus Pressure, Numbness, Tingling, Preceding Aura, Visual Changes, Blurred Vision and Visual Loss Injury - LOVETT: Negative for Direct Trauma Narrative Narrative: Patient is an elderly woman who has history of migraine headaches. She states his headache is no different than her prior. Her medications were changed recently because of change in insurance. She states the medicine she is present on is not helping her headaches. She has not been in the emergency room for quite some time. Her last CAT scan was several years ago. She denies fever, chills night sweats. Denies double vision, blurred vision loss of vision. [place] ringing in ears or decreased hearing. No trouble speech or swallowing. Denies cardiac respiratory symptoms. She does endorse nausea without vomiting or diarrhea. She denies paresthesia, anesthesia or motor weakness. She has had problems with her balance and has had this for many years. The etiology is unknown. Prior similar symptoms: Yes Recent Illness/Hospitalization: No PFSH [facility] Medical History Migraines Home Medications Hydroxyzine [Atarax] 25 mg PO QHS 05/08/15 [History Last Taken 04/14/20] albuterol sulfate [Proair Hfa (SP)Vent Pts] 2 puff INHALATION Q6H PRN PRN 05/08/15 [History Last Taken 04/14/20] aspirin 81 mg PO DAILY@0800 05/08/15 [History Last Taken Unknown] atorvastatin 80 mg PO QHS 05/08/15 [History Last Taken 04/14/20] buspirone 15 mg PO BID 05/08/15 [History Last Taken 04/14/20] clopidogrel 75 mg PO DAILY 05/08/15 [History Last Taken Unknown] fenofibrate [Lofibra] 54 mg PO DAILY 05/08/15 [History Last Taken 04/14/20] hydrocodone-acetaminophen [Vicodin 5-300 mg Tablet] 1 tab PO Q6H PRN PRN 05/08/15 [History Last Taken 04/14/20] isosorbide mononitrate 60 mg PO DAILY 05/08/15 [History Last Taken 04/14/20] lamotrigine [Lamictal] 25 mg PO DAILY 05/08/15 [History Last Taken 04/14/20] metoprolol succinate 50 mg PO DAILY 05/08/15 [History Last Taken 04/14/20] pantoprazole 40 mg PO BID 05/08/15 [History Last Taken 04/14/20] potassium chloride [K-Dur] 20 meq PO PRN PRN 05/08/15 [History Last Taken 04/14/20] quetiapine [Seroquel] 300 mg PO QHS 05/08/15 [History Last Taken 04/14/20] trazodone 50 mg PO QHS 05/08/15 [History Last Taken 04/14/20] galcanezumab-gnlm [Emgality Syringe] 120 mg SQ QMONTH 06/12/18 [History Last Taken 04/14/20] multivitamin 1 ea PO DAILY 06/12/18 [History Last Taken 04/14/20] Allergy/AdvReac Type Severity Reaction Status Date / Time Antihistamines - Alkylamine Allergy Hives Verified 02/19/21 17:35 ondansetron HCl [From Zofran] Allergy Hives Verified 02/19/21 17:35 promethazine HCl Allergy Hives Verified 02/19/21 17:35 [From Phenergan] adhesive AdvReac Intermediate Other Verified 02/19/21 17:35 Social History (Updated 02/19/21 @ 20:[address] Rex Wood MD) household members: spouse Smoking Status: Current every day smoker tobacco type: cigarettes substance use type: does not use ROS ROS ED Constitutional Constitutional ED: Denies chills, fever(s), subjective, sweats or weight loss Eyes Eyes: Denies blurry vision, change in vision or diplopia ENT ENT ED: Denies ear pain, rhinorrhea or sore throat Cardiovascular Cardiovascular: Denies chest pain, orthopnea, palpitations, paroxysmal nocturnal dyspnea or racing heartbeat Respiratory/Chest Respiratory/Chest: Denies cough, dyspnea, dyspnea on exertion, orthopnea, paroxysmal nocturnal dyspnea or sputum Gastrointestinal Gastrointestinal: Reports nausea; Denies abdominal pain, constipation, diarrhea or vomiting Genitourinary Genitourinary ED: Denies dysuria, hematuria or urinary frequency Musculoskeletal Musculoskeletal: Denies arthralgias, myalgias or neck pain Integumentary Denies rash Neurologic Neurologic: Reports headache(s); Denies paresthesias or weakness Endocrine Endocrinology: Denies polydipsia, polyphagia or polyuria EXAM Physical Exam Const Vital Signs: 02/19/21 17:33 02/19/21 19:44 02/19/21 20:08 Temperature 95.5 F L Temperature Source Temporal Pulse Rate 91 Respiratory Rate 18 17 17 Blood Pressure 159/89 H 163/88 H Blood Pressure Mean 112 113 Pulse Ox 97 Oxygen Delivery Method Room Air Positive well nourished and well developed General Appearance ED: well developed and NAD; Negative for cyanotic, diaphoretic or pallor HEENT Reports normocephalic, TM's clear and moist mucous membranes atraumatic; Negative for temporal artery tenderness or vesicular rash Face and Sinus: Negative for sinus tenderness Tympanic Membrane ED: Yes TM's clear Eyes PERRL and EOMs intact bilaterally Eyes Narrative: There is no way. Patient has significant cataracts and unable to see the fundi. She states she cannot drive at night. General Eye ED: Negative for pale conjunctiva or scleral icterus Neck no lymphadenopathy, supple, no meningeal signs and no JVD Resp normal respiratory effort and clear to auscultation bilaterally Cardio regular rate, regular rhythm, S1 normal heart sound, S2 normal heart sound and no murmurs GI non-tender and non-distended Auscultation: normoactive bowel sounds Palpation: soft Back/Spine no CVA tenderness General Back: Negative for tenderness Cervical Spine: Negative for cervical spine tenderness Lumbar Spine / Lower Back: Negative for lumbar spinal tenderness Extremity normal to inspection, full ROM and normal capillary refill General Extremety ED: Negative for edema or tenderness General Extremity: Negative for edema Neuro oriented x3, CN's II-XII intact bilaterally and no sensory deficits noted Neuro Narrative: There is no clonus or Babinski sign. [place] Coma Scale: document GCS findings Spontaneous Obeys Commands Oriented 15 Sensorium / Orientation: awake and alert Coordination / Balance: [id number] test normal Motor Exam: strength 5/5 throughout Psych mental status grossly normal Skin General Skin Exam: Negative for jaundice or pallor Lesions: no lesions Rashes: no rashes Nails: normal MDM MDM MDM Narrative Medical decision making narrative: Patient was treated with IV medication for her migraine headache. Patient was reassessed at 2150. She is smiling sitting up in bed. She states her headache is 95% improved. Will discharge to home. 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 and without status migrainosus Instructions: ED, Migraine (Classical) Prescriptions: No Action hydrocodone-acetaminophen [Vicodin] 1 EACH tablet 1 tab PO Q6H PRN PRN (Reason: Sob &/Or Wheezing) RF: 0 potassium chloride [Klor-Con M20] 20 MEQ tablet 20 meq PO PRN PRN (Reason: low potassium) RF: 0 lamotrigine [Lamictal] 5 MG Tb.Chw.Dsp 25 mg PO DAILY RF: 0 atorvastatin 80 MG tablet 80 mg PO QHS RF: 0 quetiapine [Seroquel] 300 MG tablet 300 mg PO QHS RF: 0 trazodone 50 MG tablet 50 mg PO QHS RF: 0 pantoprazole 40 MG tablet 40 mg PO BID RF: 0 clopidogrel 75 MG tablet 75 mg PO DAILY RF: 0 isosorbide mononitrate 60 MG tablet 60 mg PO DAILY RF: 0 Hydroxyzine [Atarax] 25 MG tablet 25 mg PO QHS RF: 0 buspirone 5 MG tablet 15 mg PO BID RF: 0 metoprolol succinate 50 MG tablet 50 mg PO DAILY RF: 0 aspirin 81 MG tablet 81 mg PO DAILY@0800 RF: 0 albuterol sulfate [ProAir HFA] 1 PUFF inhaler 2 puff inhalation Q6H PRN PRN (Reason: sob) RF: 0 fenofibrate [Lofibra] 54 MG tablet 54 mg PO DAILY RF: 0 multivitamin 1 EACH tablet 1 ea PO DAILY RF: 0 Emgality Syringe 120 MG/ML syringe 120 mg SQ QMONTH RF: 0 Primary Care Provider: Lauro Martinez Referrals: Lauro Martinez MD [Primary Care Provider] - [facility] appointment Disposition Disposition: Home, Self Care
[2021-02-19 22:04] VITALS: O2SAT 98
== END 2021-02-19 22:04 | disposition home or self-care (01) ==
PROVIDERS: Emergency Provider Emergency Medicine; PCP Family Medicine; Visit Provider Emergency Medicine
DX: G43.919 Migraine, unspecified, intractable, without status migrainosus (principal); F17.210 Nicotine dependence, cigarettes, uncomplicated
CPT/HCPCS: 96374; 96375; 99283

== ENCOUNTER → 2021-08-24 | Outpatient (CLI) | payer MEDICARE, OTHER, SELFPAY ==
[2021-08-24 17:58] LABS: Amphetamine Urine VISTA NEGATIVE (<1000 ng/mL); Barbiturate Urine VISTA NEGATIVE (< 200 ng/mL); Benzodiazepine Urine VISTA NEGATIVE (< 200 ng/mL); Cocaine Urine VISTA NEGATIVE (< 300 ng/mL); Ecstacy Urine VISTA NEGATIVE (< 500 ng/mL); Methadone Urine VISTA NEGATIVE (< 300 ng/mL); PCP Urine VISTA NEGATIVE (< 25 ng/mL); THC Urine VISTA NEGATIVE (< 50 ng/mL); Vista UDS pH Range 5
== END | disposition home or self-care (01) ==
LOC: LAB 16:10
PROVIDERS: PCP Family Medicine; Visit Provider Anesthesiology Pain Medicine
DX: F11.20 Opioid dependence, uncomplicated (principal)
CPT/HCPCS: 80307

== ENCOUNTER → 2021-09-28 | Outpatient (CLI) | payer MEDICARE, OTHER, SELFPAY ==
[2021-09-28] VITALS (13 sets, daily range): BP systolic 122–192; BP diastolic 55–122; PULSE 72–88; RESP 14–32; TEMP 36.6; O2SAT 92–100; BMI 25.4
--- NOTE | 2021-09-28 | ASPIGT_PTH ---
PATIENT: SARAH DEUTSCH LOC: CT U#:[id number] AGE/SX: 66/F ROOM: RE09/28/[address]: NEVIN MENDIOLA : 1955 BED: DIS: 09/28/2021 SPEC #: [id number] RECD: 09/28/21 10:58 STATUS: KISHOR REHandy #: [id number] RILEY: 09/28/21 00:[address]: RAMÍREZ CABRERA DEPT: SURGICAL PATHOLOGY RECD BY: Jeff Dillon ENTERED: 09/28/21 10:58 SP TYPE: ASP RAD OTHR DR: Dr. Lauro Martinez MD Tissues: Lung, NOS Procedures: FNA Specimen Adequacy Special Stain Group II Surgery Specimen Level IV Imprint (control) HEADER OPERATION: CT-guided left lung biopsy PRE-OP DIAGNOSIS: Left lower lobe lung mass TISSUE SUBMITTED: Left lower lobe lung MICROSCOPIC DIAGNOSIS Left lower lung, CT-guided core biopsy: Fragments of benign lung parenchymal tissue with focal fibrosis. Negative for malignancy. See comment. SJ:jesse 09/29/2021 COMMENT The specimen is evaluated at the time of biopsy by Dr. Galindo. Immediate Evaluation = Negative for malignant cells. Correlation with clinical, radiologic findings and appropriate follow up are necessary. Case has been reviewed in consultation with Dr. Polo who concurs with the above diagnosis. IDC:AM MICROSCOPIC DESCRIPTION Slides are reviewed. GROSS DESCRIPTION Received in fixative is one container labeled with the patient's name and designated left lower lobe lung. The specimen consists of multiple minute fragments of light olivo soft tissue that in aggregate measure 0.2 x 0.1 x <0.1 cm. The specimen is totally submitted in one cassette. Three touch imprints are prepared at the time of core biopsy. / AM:jesse 09/28/2021 TC:5 CPT: 80691, 06017
--- NOTE | 2021-09-28 08:50 | CT_ITS ---
PROCEDURE: CT GUIDED CORE NEEDLE BIOPSY OF A left lower lobe LUNG LESION INDICATION: Female, 66 years old. Left lower lobe nodule. PHYSICIAN: Dr. MORRO Biswas CONSENT: Written informed consent was obtained having explained the risks, benefits and alternatives in detail with the patient who accepted the risks and agreed to proceed. Laboratory review and clinical assessment was performed. CONSCIOUS SEDATION PROTOCOL: The Drugs used were: 2 mg Versed, IV., and 50 mcg Fentanyl, IV. The sedation time was: 23 minutes. Conscious sedation was started at 10:12 AM and terminated at 10:35 AM. The conscious sedation protocol was independently monitored. RADIATION DOSAGE (If Supplied By Facility): CTDIvol = ( 5.88 ) mGy, DLP = ( 250.79 ) mGycm Individualized dose optimization techniques were used for this CT. TECHNIQUE: The patient was placed in the prone position. A noncontrast CT was performed to localize the lesion in the left lower lobe . The skin surface was prepped and draped in a sterile fashion. 1% lidocaine was used for local anesthesia. Using CT guidance, a 20 coaxial biopsy device was advanced to the periphery of the lesion. A total of 5 core specimens were obtained. The specimens were placed in a formalin solution. A post procedure CT demonstrated no adverse sequelae or pneumothorax. The patient tolerated the procedure well without adverse event. A negative biopsy does not exclude malignancy. Further imaging or clinical followup based on patient condition and degree of clinical suspicion for malignancy. Suggest rebiopsy, if biopsy results do not match with clinical scenario. CT/Biopsy/Inj or Needle Placement IMPRESSION: 1. CT directed core needle biopsy of the left lower lobe nodule using CT image guidance with image documentation as described. Pathology results are pending. 2. Conscious Sedation protocol utilized with independent monitoring. Electronically Signed: George Hector MD at 11:16 EDT ,
[2021-09-28 08:51] LABS: Platelet Count 489 K/mm3 (150-450)
[2021-09-28 09:05] LABS: Partial Thromboplast Time 27.4 Seconds (24.1-36.2); Prothrombin Time (Protime)PT. 12.5 SECONDS (11.7-14.9)
[2021-09-28] MEDS: Midazolam 2 MG/2 ML Syringe IV (10:12)
[2021-09-28] MEDS: fentaNYL 100 MCG/2 ML Ampul IV (10:15)
--- NOTE | 2021-09-28 10:15 | RAD_ITS ---
STUDY: X-RAY CHEST REASON FOR EXAM: Female, 66 years old. Pneumothorax -- Immediately post lung biopsy TECHNIQUE: AP inspiration and expiration views. COMPARISON: Comparison is made with prior studies #9 2015. FINDINGS: The patient is status post left lower lobe lung biopsy. There is no evidence of pneumothorax. Increased density is seen at the left lung base suggestive of a possible small focal reaction secondary to the biopsy. RAD/Chest Insp/Exp 2 View IMPRESSION: No evidence of pneumothorax on the immediate post left lung biopsy radiographs. Electronically Signed: George Hector MD at 10:55 EDT ,
[2021-09-28] MEDS: Lidocaine 2% (10 ml mdv) 10 ML Vial INFILT (10:20)
--- NOTE | 2021-09-28 12:15 | RAD_ITS ---
STUDY: X-RAY CHEST REASON FOR EXAM: Female, 66 years old. Pneumothorax -- 2 hours post lung biopsy TECHNIQUE: AP inspiration and expiration views. COMPARISON: Comparison is made with prior examination done earlier today. FINDINGS: EKG electrodes are seen. There is no evidence of pneumothorax on the 2 hour post left lung biopsy radiographs. RAD/Chest Insp/Exp 2 View IMPRESSION: No evidence of pneumothorax on the 2 hour post left lung biopsy radiographs. Electronically Signed: George Hector MD at 13:03 EDT ,
== END | disposition home or self-care (01) ==
LOC: CT 08:40
PROVIDERS: PCP Family Medicine; Referring Provider Physician Assistant; Visit Provider Physician Assistant
DX: J43.2 Centrilobular emphysema (principal); R91.1 Solitary pulmonary nodule; R06.09 Other forms of dyspnea; R91.8 Other nonspecific abnormal finding of lung field; F17.210 Nicotine dependence, cigarettes, uncomplicated; I25.10 Atherosclerotic heart disease of native coronary artery without angina pectoris; I25.2 Old myocardial infarction; I10 Essential (primary) hypertension; R06.02 Shortness of breath
CPT/HCPCS: 32408; 36415; 71046; 77012; 85049; 85610; 85730; 88172; 88305; 88313; 99156; J7050; A4216; C2613

== ENCOUNTER → 2022-02-11 | Outpatient (CLI) | payer MEDICARE, OTHER, SELFPAY ==
--- NOTE | 2022-02-13 16:11 | STRESSREP_ITS ---
Stress Test Report Pharmacologic myocardial perfusion stress test. 67-year-old lady with a history of chest pain Resting EKG demonstrates sinus rhythm with a rate of 79 bpm. Resting blood pressure is 148/96 mmHg. 0.4 mg of regadenoson was infused per usual protocol followed by rapid intravenous saline flush injection. Continuous EKG monitoring was performed. The maximum heart rate was 91 bpm which was 59% of max impacted heart rate the maximum workload was 1 metabolic equivalent. At rest there were no ST or T wave changes noted to suggest ischemia and at peak infusion nonspecific ST changes were noted with did not meet the criteria for ischemia. Occasional premature ventricular complexes noted. No clinical angina is noted. The final blood pressure was 136/82 mmHg. Myocardial perfusion protocol. 11.6 mCi of technetium 99m sestamibi was injected at rest. 0.4 mg of regadenoson was infused per usual protocol. At peak infusion 33.8 mCi of te chnetium 99m sestamibi was injected stress images were obtained stress and rest images were reconstructed and compared in the short axis vertical long and horizontal long axis. Gated images were also obtained. Perfusion SPECT analysis: Review of the stress images demonstrate normal uptake of tracer noted in all areas of the myocardium. The resting images similar demonstrated normal uptake of tracer noted in all areas of the myocardium. No areas of reversibility are noted to suggest ischemia and no previous infarct is noted. Gated SPECT analysis: The gated ejection fraction is 42 Conclusion: Normal pharmacologic myocardial perfusion stress test. Preserved ejection fraction.
== END | disposition home or self-care (01) ==
LOC: CVS 06:36
PROVIDERS: PCP Family Medicine; Referring Provider Internal Medicine Cardiovascular Disease; Visit Provider Internal Medicine Cardiovascular Disease
DX: I25.10 Atherosclerotic heart disease of native coronary artery without angina pectoris (principal); Z95.5 Presence of coronary angioplasty implant and graft
CPT/HCPCS: 78452; 93017; A9500; A4216; J2785

== ENCOUNTER → 2022-03-16 | Outpatient (CLI) | payer MEDICARE, OTHER, SELFPAY ==
--- NOTE | 2022-03-16 12:58 | ECHOD_ITS ---
Reason For Study: CAD/ASHD Procedure This was a 2D Doppler, Color Flow transthoracic echocardiogram. Exam performed in department. Left Ventricle Normal LV size. Left ventricular systolic function is normal. The estimated ejection fraction is 60 %. Mild segmental systolic dysfunction (see wall motion). Infero-Basal: Hypokinetic. There are regional wall motion abnormalities as specified. Mid-inferoseptal : Mildly hypokinetic. Right Ventricle Normal RV size. Normal systolic function. Atria Normal left atrium. Normal right atrium. Mitral Valve Normal mitral valve. Mild-Moderate (1-2+) eccentric mitral valve insufficiency. Tricuspid Valve Normal tricuspid valve. Mild tricuspid valve insufficiency. Pulmonary artery systolic pressure is 28 mmHg. Aortic Valve Normal aortic valve. Pulmonic Valve Normal pulmonic valve. Great Vessels Normal aortic root. The pulmonary artery is normal size. Normal inferior vena cava. Pericardium/Pleural No pericardial effusion. MMode/2D Measurements & Calculations LVIDd: 4.8 cm IVSd: 1.1 cm Ao root diam: 3.2 cm LVIDs: 3.6 cm LVPWd: 1.0 cm RVDd: 1.9 cm FS: 24.2 % LAV(MOD-bp): 19.6 ml LVAd ap4: 18.0 cm2 SV(MOD-sp4): 21.2 ml LAV(MOD-bp) Indexed: 12.0 ml/m2 LVLd ap4: 7.0 cm LAV(MOD-sp2): 15.3 ml EDV(MOD-sp4): 38.3 ml LAV(MOD-sp4): 20.6 ml EDV(sp4-el): 39.5 ml LVAs ap4: 10.7 cm2 LVLs ap4: 5.8 cm ESV(MOD-sp4): 17.1 ml ESV(sp4-el): 16.5 ml EF(MOD-sp4): 55.3 % EF(sp4-el): 58.1 % SV(sp4-el): 22.9 ml LA A4 area: 10.6 cm2 LA dimension(2D): 3.3 cm RA A4 area: 5.2 cm2 Time Measurements MV dec time: 0.26 sec Doppler Measurements & Calculations MV E max ronnell: 49.0 cm/sec Lat Peak E' Ronnell: 7.3 cm/sec Med Peak E' Ronnell: 3.1 cm/sec MV A max ronnell: 84.2 cm/sec E/E' lat: 6.7 E/E' med: 16.0 MV E/A: 0.58 Ao V2 max: 138.4 cm/sec LV V1 max: 126.0 cm/sec PA V2 max: 82.0 cm/sec Ao max P.7 mmHg LV V1 max P.4 mmHg Ao V2 mean: 88.6 cm/sec Ao mean P.8 mmHg Ao V2 VTI: 21.1 cm PI end-d ronnell: 137.7 cm/sec TR max ronnell: 248.1 cm/sec TR max P.6 mmHg ECHO/Echo Complete Interpretation Summary Normal LV size. Left ventricular systolic function is normal. The estimated ejection fraction is 60 %. Mild tricuspid valve insufficiency. Mild segmental systolic dysfunction (see wall motion). Infero-Basal: Hypokinetic Pulmonary artery systolic pressure is 28 mmHg. Mid-inferoseptal : Mildly hypokinetic Ordering Physician: Lazarus Rosario Referring Physician: Lauro Martinez Performed By: Eliane Farmer, LORENZOCS, RVT
== END | disposition home or self-care (01) ==
LOC: CVS 12:57
PROVIDERS: PCP Family Medicine; Visit Provider Internal Medicine Cardiovascular Disease
DX: I25.10 Atherosclerotic heart disease of native coronary artery without angina pectoris (principal)
CPT/HCPCS: 93306

== ENCOUNTER 2022-07-28 15:48 | Outpatient (CLI) | payer MEDICARE, OTHER, SELFPAY ==
[2022-07-28 16:55] LABS: Absolute Lymphocyte Count 2.32 X10^3/uL (0.83-4.51); Absolute Neutrophil Count 10.3 X10^3/uL (2.0-7.7); Basophil# 0.06 X10^3/uL; Basophil% 0.4 % (0-1); Eosinophil# 0.05 X10^3/uL; Eosinophils% 0.4 % (0-5); Hematocrit 47.6 % (37-47); Hemoglobin 15.8 g/dL (12.0-15.0); Lymphocyte # 2.32 X10^3/ul (0.83-4.51); Lymphocyte % 16.8 % (19-41); Mean Corp Hgb Conc 33.2 g/dL (32-36); Mean Corpuscular Hgb 31.3 pg (27.0-32.0); Mean Corpuscular Volume 94.3 fL (81-99); Mean Platelet Vol. 9.3 fl (6.2-12.0); Monocyte# 0.97 X10^3/uL; NRBC Flagged by Analyzer 0 % (0-5); Neutrophil # 10.33 X10^3/uL (2.7-7.7); Platelet Count 606 K/mm3 (150-450); RBC Distribution Width CV 14.6 % (11.6-14.6); RBC Distribution Width SD 49.3 fl (35.1-43.9); Red Blood Count 5.05 M/mm3 (4.2-5.4); White Blood Count 13.8 K/mm3 (4.4-11.0)
[2022-07-28 16:59] LABS: Erythrocyte Sedimentation Rate 11 mm/hr (0-30)
[2022-07-28 19:48] LABS: ALB/GLOB Ratio 0.6 RATIO (0.9-2.4); AST(SGOT) 54 U/L (15-37); Alanine Aminotransfer ALT/SGPT 37 U/L (13-56); Albumin, Serum 2.3 g/dL (3.2-5.0); Alkaline Phosphatase 150 U/L (45-117); Anion Gap 5 (5-15); BUN 5 mg/dL (7-18); CPK Total, Creatine Kinase 51 U/L (26-192); CRP < 2.90 mg/L (0.0-3.0); Calcium,Total 8.8 mg/dL (8.5-10.1); Chloride 105 mmol/L (98-107); Creatinine, Serum 0.83 mg/dL (0.55-1.02); EST Glomerular Filtration Rate 73 mL/min (>60); Est Glom Filt Rate - Afr Amer 88 mL/min (>60); Globulin 3.9 g/dL (2.2-4.2); Glucose 111 mg/dL (74-106); LDH 236 U/L (84-246); Potassium 4.1 mmol/L (3.5-5.1); Prolactin 21.4 ng/mL; Protein, Total 6.2 g/dL (6.4-8.2); Sodium Level 140 mmol/L (136-145)
[2022-08-01 15:08] LABS: Endomysial Antibody IgA Negative (Negative); Immunoglobulin A 377 mg/dL (87-352); t-Transglutaminase IgA <2 U/mL (0-3)
[2022-08-03 22:07] LABS: Anti-Centromere B Ab <0.2 AI (0.0-0.9); Anti-Chromatin 2.3 AI (0.0-0.9); Anti-Jo <0.2 AI (0.0-0.9); Anti-Scleroderma-70 AB <0.2 AI (0.0-0.9); Anti-dsDNA Ab 1 IU/mL (0-9); Beef <0.10 kU/L (Class 0); Chocolate <0.10 kU/L (Class 0); Clam <0.10 kU/L (Class 0); Codfish <0.10 kU/L (Class 0); Corn <0.10 kU/L (Class 0); Egg, White <0.10 kU/L (Class 0); Egg, Whole <0.10 kU/L (Class 0); Milk (Cow) <0.10 kU/L (Class 0); Peanut <0.10 kU/L (Class 0); Pork <0.10 kU/L (Class 0); RNP Ab <0.2 AI (0.0-0.9); SCALLOP <0.10 kU/L (Class 0); SESAME SEED <0.10 kU/L (Class 0); SJOGREN'S Anti-SS-A test < 0.2 AI (0.0-0.9); SJOGREN'S Anti-SS-B test < 0.2 AI (0.0-0.9); Shrimp <0.10 kU/L (Class 0); Smith Ab <0.2 AI (0.0-0.9); Soybean <0.10 kU/L (Class 0); Walnut, (Food) <0.10 kU/L (Class 0); Wheat <0.10 kU/L (Class 0)
[2022-08-04 00:07] LABS: Albumin 2.8 g/dL (2.9-4.4); Alpha-1-Globulins 0.3 g/dL (0.0-0.4); Alpha-2-Globulins 0.9 g/dL (0.4-1.0); Cytoplasmic Ab (C-ANCA) <1:20 titer (Neg:<1:20); Gamma Globulin 1.2 g/dL (0.4-1.8); Immunoglobulin A 381 mg/dL (87-352); Immunoglobulin E 100 IU/mL (6-495); Immunoglobulin G 1030 mg/dL (586-1602); Immunoglobulin M 221 mg/dL (26-217); PROEL- TOTAL PROTEIN 6.3 g/dL (6.0-8.5); Perinuclear Ab (P-ANCA) <1:20 titer (Neg:<1:20)
== END 2022-07-28 23:59 | disposition home or self-care (01) ==
LOC: LAB 15:50
PROVIDERS: PCP Family Medicine; Referring Provider Internal Medicine Gastroenterology; Visit Provider Internal Medicine Gastroenterology
DX: R11.2 Nausea with vomiting, unspecified (principal); K58.9 Irritable bowel syndrome, unspecified; I25.10 Atherosclerotic heart disease of native coronary artery without angina pectoris; Z87.19 Personal history of other diseases of the digestive system; E53.8 Deficiency of other specified B group vitamins
CPT/HCPCS: 36415; 80053; 82085; 82550; 82784; 82785; 83516; 83615; 84146; 84165; 85025; 85652; 86003; 86005; 86140; 86225; 86235; 86255; 86256; 86334

== ENCOUNTER → 2022-08-01 | Outpatient (CLI) | payer MEDICARE, OTHER, SELFPAY ==
--- NOTE | 2022-08-01 13:00 | RAD_ITS ---
STUDY: X-RAY - ABDOMEN/PELVIS REASON FOR EXAM: Female, 67 years old. Evaluation of Sitzmarks markers. TECHNIQUE: Single AP view of the abdomen / pelvis on T2 images. COMPARISON: None. FINDINGS: Normal visualized lung bases. Normal bowel gas pattern with air seen to the rectosigmoid. One Sitzmarks marker in the mid descending colon and surgery sits markers projected over the region of the midportion of the sigmoid. There is no demonstrated free abdominal air. The visualized liver, spleen and kidneys are grossly normal in size and morphology. Normal soft tissue structures. Normal visualized osseous structures. RAD/Abdomen Single View IMPRESSION: Sitzmarks markers distribution as described. Electronically Signed: Prosper Gutierrez MD at 15:58 EDT ,
== END | disposition home or self-care (01) ==
LOC: RAD 12:55
PROVIDERS: PCP Family Medicine; Referring Provider Internal Medicine Gastroenterology; Visit Provider Internal Medicine Gastroenterology
DX: R11.2 Nausea with vomiting, unspecified (principal)
CPT/HCPCS: 74018

== ENCOUNTER → 2022-08-05 | Outpatient (CLI) | payer MEDICARE, OTHER, SELFPAY ==
--- NOTE | 2022-08-05 13:22 | RAD_ITS ---
INDICATION: sitz 2 EXAMINATION/TECHNIQUE: X-RAY - XR Abdomen 1 View COMPARISON: Prior examination of 08/01/2022. FINDINGS: BOWEL GAS PATTERN: Nonspecific somewhat distended colon. Gas is seen in the region of the rectum. Mild fecal retention. No bowel or stomach distention. FREE AIR: Not assessed on a single supine view. ORGANOMEGALY: Not seen. CALCIFICATIONS: No abnormal calcifications observed. LOWER CHEST: No acute pathology. BONES AND SOFT TISSUES: No acute pathology. RAD/Abdomen Single View IMPRESSION: Nonspecific somewhat distended gaseous transverse colon. Electronically Signed: Elvin Niño MD at 13:34 EDT ,
== END | disposition home or self-care (01) ==
LOC: RAD 13:19
PROVIDERS: PCP Family Medicine; Referring Provider Internal Medicine Gastroenterology; Visit Provider Internal Medicine Gastroenterology
DX: R11.2 Nausea with vomiting, unspecified (principal)
CPT/HCPCS: 74018

== ENCOUNTER → 2022-09-29 | Outpatient (CLI) | payer MEDICARE, OTHER, SELFPAY ==
[2022-09-29 13:47] LABS: Amphetamine Urine VISTA NEGATIVE (<1000 ng/mL); Barbiturate Urine VISTA NEGATIVE (< 200 ng/mL); Benzodiazepine Urine VISTA NEGATIVE (< 200 ng/mL); Cocaine Urine VISTA NEGATIVE (< 300 ng/mL); Ecstacy Urine VISTA NEGATIVE (< 500 ng/mL); Methadone Urine VISTA NEGATIVE (< 300 ng/mL); PCP Urine VISTA NEGATIVE (< 25 ng/mL); THC Urine VISTA NEGATIVE (< 50 ng/mL); Vista UDS pH Range 5
== END | disposition home or self-care (01) ==
LOC: LAB 12:24
PROVIDERS: PCP Family Medicine; Referring Provider Anesthesiology Pain Medicine; Visit Provider Anesthesiology Pain Medicine
DX: F11.20 Opioid dependence, uncomplicated (principal)
CPT/HCPCS: 80307

== ENCOUNTER 2022-11-20 20:01 | Emergency (ER) | payer MEDICARE, OTHER, SELFPAY ==
[2022-11-20 20:02] VITALS: BP 157/87
[2022-11-20 20:03] VITALS: PULSE 103; RESP 19; TEMP 36.4; O2SAT 97; BMI 22.4
--- NOTE | 2022-11-20 20:24 | EDS_ITS ---
HPI <NEVIN Foster - Last Filed: 11/20/22 20:52> History of Present Illness Chief Complaint: Nausea/Vomiting/Diarrhea Narrative Narrative: Patient presenting today due to nausea, vomiting, and diarrhea that she has had chronically since May of this year. She reports that she vomits daily and generally takes Compazine for her symptoms but today has had intractable vomiting and was unable to keep down her nausea medicine. She has seen Dr. Tee and is currently being worked up for this, she reports that they suspect she could have Crohn's. She denies any hematemesis or blood in her stool. She reports that she has had loose bowel movements since May and has been tested for C. difficile which was negative. She reports some suprapubic pressure and dysuria over the past few days, she does have a history of interstitial cystitis. She denies having any abdominal pain. She has a PMH of Slade's esophagus, fibromyalgia, CAD with stent placement, hypertension, hyperlipidemia. PFSH <NEVIN Foster - Last Filed: 11/20/22 20:52> [facility] Medical History Abdominal pain Acute constipation Anxiety Asthma Atherosclerosis of coronary artery of [place] heart without angina pectoris Slade's esophagus Carpal tunnel syndrome Centrilobular emphysema COPD (chronic obstructive pulmonary disease) Diarrhea Dysthymia Esophagitis Essential hypertension Fibromyalgia Generalized anxiety disorder GERD (gastroesophageal reflux disease) History of chronic back pain History of DVT (deep vein thrombosis) History of fibromyalgia History of migraine History of small bowel obstruction History of ulcerative colitis Hyperlipidemia Infarction of colon Insomnia Low vitamin B12 level Lung nodules Migraines Mood disorder Nausea and vomiting HUBERT (obstructive sleep apnea) Panic disorder Severe depression Tobacco abuse Vitamin D deficiency Home Medications albuterol sulfate 90 mcg/actuation aerosol inhaler (ProAir HFA) 2 puff inhalation Q6H PRN PRN sob 05/08/15 [History Last Taken 04/14/20] aspirin 81 mg tablet,delayed release 81 mg PO DAILY@0800 05/08/15 [History Last Taken Unknown] atorvastatin 80 mg tablet 80 mg PO QHS 05/08/15 [History Last Taken 04/14/20] clopidogrel 75 mg tablet 75 mg PO DAILY 05/08/15 [History Last Taken 09/22/21] hydrocodone 5 mg-acetaminophen 300 mg tablet (Vicodin) 1 tab PO Q6H PRN PRN Sob &/Or Wheezing 05/08/15 [History Last Taken 04/14/20] pantoprazole 40 mg tablet,delayed release 40 mg PO BID 05/08/15 [History Last Taken 04/14/20] quetiapine 300 mg tablet (Seroquel) 300 mg PO QHS 05/08/15 [History Last Taken 04/14/20] galcanezumab-gnlm 120 mg/mL subcutaneous syringe (Emgality) 120 mg SQ QMONTH 0 06/12/18 [History Last Taken 04/14/20] multivitamin 1 ea PO DAILY 06/12/18 [History Last Taken 04/14/20] albuterol sulfate 2.5 mg/3 mL (0.083 %) solution for nebulization 2.5 mg inhalation Q4H PRN shortness of breath 09/28/21 [History Last Taken Unknown] calcium carbonate 600 mg calcium (1,500 mg) tablet (Calcium) 600 mg PO BID 09/28/21 [History Last Taken Unknown] cholecalciferol (vitamin D3) 50 mcg (2,000 unit) tablet 50 mcg PO DAILY 09/28/21 [History Last Taken Unknown] citalopram 40 mg tablet 40 mg PO DAILY 09/28/21 [History Last Taken Unknown] nitroglycerin 0.4 mg sublingual tablet 0.4 mg sublingual Q5M PRN Chest Pain 09/28/21 [History Last Taken Unknown] prochlorperazine maleate 10 mg tablet 10 mg PO Q6H PRN Nausea 09/28/21 [History Last Taken Unknown] buspirone 15 mg tablet 15 mg PO BID 11/18/21 [History Last Taken Unknown] cyclobenzaprine 10 mg tablet 10 mg PO BID PRN 11/18/21 [History Last Taken Unknown] hydroxyzine HCl 25 mg tablet 25 mg PO QHS 11/18/21 [History Last Taken Unknown] ipratropium 0.5 mg-albuterol 3 mg (2.5 mg base)/3 mL nebulization soln 3 ml inhalation 4X/DAY 11/18/21 [History Last Taken Unknown] omega-3 fatty acids 2,000 mg PO DAILY 11/18/21 [History Last Taken Unknown] metoprolol succinate 100 mg tablet,extended release 24 hr 100 mg PO BID 12/01/21 [History Last Taken Unknown] amlodipine 5 mg tablet 5 mg PO DAILY #90 tabs 01/05/22 [Rx Last Taken Unknown] tiotropium bromide 18 mcg capsule with inhalation device 1 cap inhalation DAILY 05/03/22 [History Last Taken Unknown] scopolamine base 1 mg over 3 days transdermal patch 1 patch transdermal Q3D PRN nausea and vomiting #4 ea 08/19/22 [Rx Last Taken Unknown] Allergy/AdvReac Type Severity Reaction Status Date / Time morphine Allergy Unknown unknown Verified 11/20/22 20:03 trazodone Allergy Unknown jittery Verified 11/20/22 20:03 Antihistamines - Alkylamine Allergy Hives Verified 11/20/22 20:03 ondansetron HCl [From Zofran] Allergy Hives Verified 11/20/22 20:03 promethazine HCl Allergy Hives Verified 11/20/22 20:03 [From Phenergan] adhesive AdvReac Intermediate Other Verified 11/20/22 20:03 losartan AdvReac Unknown shaking Verified 11/20/22 20:03 and elevated BP zolpidem [From Ambien] AdvReac Unknown vivid Verified 11/20/22 20:03 dreams and night sweats lisinopril AdvReac cough Verified 11/20/22 20:03 Family History Father Cancer CVA (cerebral vascular accident) Mother Myocardial infarction Sister Heart disease Diabetes CAD (coronary artery disease) Surgical History History of appendectomy History of bilateral carpal tunnel release History of colonoscopy History of coronary artery stent placement (01/25/08) History of cystoscopy History of dilatation and curettage History of esophagogastroduodenoscopy (EGD) History of hysterectomy History of left heart catheterization (03/2010) History of partial colectomy History of salpingo-oophorectomy History of shoulder surgery Hx of LASIK Social History household members: spouse Smoking Status: Current every day smoker tobacco type: cigarettes alcohol intake: never substance use type: does not use ROS <NEVIN Foster - Last Filed: 11/20/22 20:52> ROS ED Constitutional Constitutional ED: Denies chills or fever(s) Cardiovascular Cardiovascular: Denies chest pain Respiratory/Chest Respiratory/Chest: Denies cough or dyspnea Gastrointestinal Gastrointestinal: Reports diarrhea, nausea and vomiting; Denies abdominal pain Genitourinary Genitourinary ED: Reports dysuria and urinary urgency; Denies hematuria Musculoskeletal Musculoskeletal: Denies arthralgias or myalgias Neurologic Neurologic: Denies weakness EXAM <NEVIN Foster - Last Filed: 11/20/22 20:52> Physical Exam Const Vital Signs: 11/20/22 20:03 11/20/22 20:02 11/20/22 20:27 Temperature 97.5 F L 97.5 F L Temperature Source Temporal Temporal Pulse Rate 103 H 100 Respiratory Rate 19 H 18 Blood Pressure 157/87 H 157/87 H Blood Pressure Mean 110 110 Pulse Ox 97 100 Oxygen Delivery Method Room Air Room Air 11/20/22 21:19 Temperature Temperature Source Pulse Rate Respiratory Rate Blood Pressure 152/81 H Blood Pressure Mean 104 Pulse Ox Oxygen Delivery Method Positive well nourished, well developed and no apparent distress General Appearance ED: well developed HEENT Reports normocephalic and head/scalp atraumatic Mouth ED: Yes moist mucous membranes normal Eyes PERRL and EOMs intact bilaterally Neck full ROM and supple Chest Wall inspection of chest normal Resp normal respiratory effort and clear to auscultation bilaterally Cardio regular rate and regular rhythm GI soft to palpation, non-tender, non-distended and no masses GI Narrative: Minimal suprapubic tenderness to palpation Back/Spine normal ROM and normal to inspection Extremity normal to inspection and full ROM Neuro oriented x3, CN's II-XII intact bilaterally, moves all extremities, no focal motor deficits and no sensory deficits noted Sensorium / Orientation: awake and alert Psych mental status grossly normal and thought process normal Skin no rashes or lesions noted and no wounds <Dr. Justino Chowdary DO - Last Filed: 11/20/22 22:46> Physical Exam Const Vital Signs: 11/20/22 20:03 11/20/22 20:02 11/20/22 20:27 Temperature 97.5 F L 97.5 F L Temperature Source Temporal Temporal Pulse Rate 103 H 100 Respiratory Rate 19 H 18 Blood Pressure 157/87 H 157/87 H Blood Pressure Mean 110 110 Pulse Ox 97 100 Oxygen Delivery Method Room Air Room Air 11/20/22 21:19 Temperature Temperature Source Pulse Rate Respiratory Rate Blood Pressure 152/81 H Blood Pressure Mean 104 Pulse Ox Oxygen Delivery Method [facility] <NEVIN Foster - Last Filed: 11/20/22 20:52> [facility] Narrative Medical decision making narrative: Patient presenting today due to intractable nausea and vomiting that she has had since today. She has had nausea, vomiting, and loose stool daily since May and reports that she is being worked up for this by Dr. Tee. She denies having any abdominal pain but reports suprapubic pain and dysuria. She is nontoxic-appearing. She is afebrile here and is slightly tachycardic initially. She will be given IV fluids, Compazine, and Benadryl. Labs to be obtained to rule out leukocytosis, anemia, electrolyte abnormality, ANGELINE, and UTI. At this point, work-up is pending. Lab Data Attestation: I reviewed the patient's lab results. Labs: Laboratory Results - last 24 hr 11/20/22 11/20/22 20:20 20:30 WBC 19.0 H RBC 5.52 H Hgb 16.9 H Hct 50.5 H MCV 91.5 MCH 30.6 MCHC 33.5 RDW Std Deviation 48.2 H RDW Coeff of Harleen 14.3 Plt Count 530 H MPV 10.0 Immature Gran % (Auto) 0.600 Neut % (Auto) 88.4 H Lymph % (Auto) 6.[address] [place] % (Auto) 4.4 Eos % (Auto) 0.0 Baso % (Auto) 0.3 Absolute Neuts (auto) 16.8 H Absolute Lymphs (auto) 1.19 Nucleated RBC % 0 Sodium 139 Potassium 4.0 Chloride 101 Carbon Dioxide 24.0 Anion Gap 14 BUN 5 L Creatinine 1.04 H Estim Creat Clear Calc 42.08 Est GFR (MDRD) Af Amer 68 Est GFR (MDRD) Non-Af 56 L BUN/Creatinine Ratio 4.8 L Glucose 198 H Calcium 9.3 Total Bilirubin 0.70 AST 85 H ALT 76 H Alkaline Phosphatase 171 H Total Protein 6.6 Albumin 2.2 L Globulin 4.4 H Albumin/Globulin Ratio 0.5 L Lipase < 10 L Urine Color Yellow Urine Clarity Sl. Cloudy Urine pH 6.0 Ur Specific [place] 1.020 Urine Protein Negative Urine Glucose (UA) Normal Urine Ketones 15 H Urine Occult Blood 10 H Urine Nitrite Negative Urine Bilirubin Negative Urine Urobilinogen Normal Ur Leukocyte Esterase 100 H Urine RBC 0-5 SEEN Urine WBC 5-10 SEEN Ur Squamous Epith Cells 0-5 SEEN Amorphous Sediment 1+ URATE Urine Bacteria 0 SEEN Urine Mucus 0 SEEN <Dr. Justino Chowdary, DO - Last Filed: 11/20/22 22:46> [facility] MDM Narrative Medical decision making narrative: Patient presenting today due to intractable nausea and vomiting that she has had since today. She has had nausea, vomiting, and loose stool daily since May and reports that she is being worked up for this by Dr. Tee. She denies having any abdominal pain but reports suprapubic pain and dysuria. She is nontoxic-appearing. She is afebrile here and is slightly tachycardic initially. She will be given IV fluids, Compazine, and Benadryl. Labs to be obtained to rule out leukocytosis, anemia, electrolyte abnormality, ANGELINE, and UTI. At this point, work-up is pending. I have personally performed a face to face assessment of the patient and have reviewed the RICKI Note. I performed a substantive portion of the visit including all aspects of the following. My woodall findings include: History is patient with chronic nausea and vomiting. Today at home Compazine not effective in keeping fluids down. Exam is nonfocal. Slightly tachycardic. Moist mucous membranes. Nontoxic- appearing. Medical Decison Making after dose of Compazine and prior to the Benadryl administration the patient developed significant anxiety. Her and I tried to keep her calm until we are able to get Benadryl into her. She continued to asked to go home. I will have her sign out AMA with her . Advised him to continue to take Benadryl. Patient appears to have capacity to make her decision but we will have her care for her and agree with taking her home. Lab Data Labs: Laboratory Results - last 24 hr 11/20/22 11/20/22 20:20 20:30 WBC 19.0 H RBC 5.52 H Hgb 16.9 H Hct 50.5 H MCV 91.5 MCH 30.6 MCHC 33.5 RDW Std Deviation 48.2 H RDW Coeff of Harleen 14.3 Plt Count 530 H MPV 10.0 Immature Gran % (Auto) 0.600 Neut % (Auto) 88.4 H Lymph % (Auto) 6.[address] [place] % (Auto) 4.4 Eos % (Auto) 0.0 Baso % (Auto) 0.3 Absolute Neuts (auto) 16.8 H Absolute Lymphs (auto) 1.19 Nucleated RBC % 0 Sodium 139 Potassium 4.0 Chloride 101 Carbon Dioxide 24.0 Anion Gap 14 BUN 5 L Creatinine 1.04 H Estim Creat Clear Calc 42.08 Est GFR (MDRD) Af Amer 68 Est GFR (MDRD) Non-Af 56 L BUN/Creatinine Ratio 4.8 L Glucose 198 H Calcium 9.3 Total Bilirubin 0.70 AST 85 H ALT 76 H Alkaline Phosphatase 171 H Total Protein 6.6 Albumin 2.2 L Globulin 4.4 H Albumin/Globulin Ratio 0.5 L Lipase < 10 L Urine Color Yellow Urine Clarity Sl. Cloudy Urine pH 6.0 Ur Specific [place] 1.020 Urine Protein Negative Urine Glucose (UA) Normal Urine Ketones 15 H Urine Occult Blood 10 H Urine Nitrite Negative Urine Bilirubin Negative Urine Urobilinogen Normal Ur Leukocyte Esterase 100 H Urine RBC 0-5 SEEN Urine WBC 5-10 SEEN Ur Squamous Epith Cells 0-5 SEEN Amorphous Sediment 1+ URATE Urine Bacteria 0 SEEN Urine Mucus 0 SEEN Discharge Plan Triage Chief Complaint: Nausea/Vomiting/Diarrhea Other Complaint: Complaint ED Midlevel Provider: [place] ED Provider: Justino Chowdary Dx/Rx/DC Orders Clinical Impression: Nausea & vomiting Instructions: ED Vomiting (Adult) Prescriptions: No Action metoprolol succinate 100 mg tablet extended release 24 hr 100 mg PO BID hydroxyzine HCl 25 mg tablet 25 mg PO QHS buspirone 15 mg tablet 15 mg PO BID ipratropium-albuterol 0.5 mg-3 mg(2.5 mg base)/3 mL solution for nebulization 3 ml inhalation 4X/DAY tiotropium bromide 18 mcg capsule, w/inhalation device 1 cap inhalation DAILY Rx Instructions: puncture 1 cap using device; one dose = 2 inhalations hydrocodone-acetaminophen [Vicodin] 1 EACH tablet 1 tab PO Q6H PRN PRN (Reason: Sob &/Or Wheezing) atorvastatin 80 MG tablet 80 mg PO QHS quetiapine [Seroquel] 300 MG tablet 300 mg PO QHS pantoprazole 40 MG tablet 40 mg PO BID clopidogrel 75 MG tablet 75 mg PO DAILY aspirin 81 MG tablet 81 mg PO DAILY@0800 albuterol sulfate [ProAir HFA] 1 PUFF inhaler 2 puff inhalation Q6H PRN PRN (Reason: sob) multivitamin 1 EACH tablet 1 ea PO DAILY Emgality Syringe 120 MG/ML syringe 120 mg SQ QMONTH albuterol sulfate 2.5 mg /3 mL (0.083 %) Solution For Nebulization 2.5 mg INHALATION Q4H PRN (Reason: shortness of breath) citalopram 40 mg tablet 40 mg PO DAILY prochlorperazine maleate 10 mg Tablet 10 mg PO Q6H PRN (Reason: Nausea) calcium carbonate [Calcium 600] 600 mg calcium (1,500 mg) Tablet 600 mg PO BID nitroglycerin 0.4 mg Tablet, Sublingual 0.4 mg SUBLINGUAL Q5M PRN (Reason: Chest Pain) Rx Instructions: do not exceed 3 doses per episode cholecalciferol (vitamin D3) 50 mcg (2,000 unit) Tablet 50 mcg PO DAILY omega-3 fatty acids Capsule 2,000 mg PO DAILY cyclobenzaprine 10 mg tablet 10 mg PO BID PRN amlodipine 5 mg tablet 5 mg PO DAILY Qty: 90 3RF scopolamine base 1 mg over 3 days patch 3 day 1 patch transdermal Q3D PRN (Reason: nausea and vomiting) Qty: 4 3RF Primary Care Provider: Lauro Martinez Referrals: Lauro Martinez MD [Primary Care Provider] - Disposition Disposition: Against Medical Advice Discharge Date/Time: 11/20/22 21:38
[2022-11-20] MEDS: proCHLORPERazine 10 MG/2 ML Vial 5 MG IV (20:26)
[2022-11-20] MEDS: 0.9% Normal Saline (1000mL) 1,000 ML 1000 ML IV (20:26)
[2022-11-20 20:27] VITALS: BP 157/87; PULSE 100; RESP 18; TEMP 36.4; O2SAT 100
[2022-11-20 20:36] LABS: Bacteria 0 SEEN /hpf (None Seen); Mucous, Urine 0 SEEN /hpf (<or=2+)
[2022-11-20 20:41] LABS: Color, Urine Yellow (Yellow); Glucose, Dipstick Normal (Normal); Ketone-Dipstick 15 mg/dl (Negative); Leukocyte Esterase-Dipstick 100 /ul (Negative); Nitrite-Dipstick Negative (Negative); Occult Blood-Urine 10 /ul (Negative); Protein-Dipstick Negative (Negative); Urine Bilirubin Dipstick Negative (Negative); Urine Clarity Sl. Cloudy (Clear); Urine Urobilinogen Normal (Normal)
[2022-11-20 20:41] LABS: Absolute Lymphocyte Count 1.19 X10^3/uL (0.83-4.51); Absolute Neutrophil Count 16.8 X10^3/uL (2.0-7.7); Basophil# 0.06 X10^3/uL; Basophil% 0.3 % (0-1); Hematocrit 50.5 % (37-47); Hemoglobin 16.9 g/dL (12.0-15.0); Lymphocyte # 1.19 X10^3/ul (0.83-4.51); Lymphocyte % 6.3 % (19-41); Mean Corp Hgb Conc 33.5 g/dL (32-36); Mean Corpuscular Hgb 30.6 pg (27.0-32.0); Mean Corpuscular Volume 91.5 fL (81-99); Monocyte# 0.84 X10^3/uL; Monocyte% 4.4 % (0-10); NRBC Flagged by Analyzer 0 % (0-5); Neutrophil # 16.76 X10^3/uL (2.7-7.7); Neutrophil % 88.4 % (47-70); Platelet Count 530 K/mm3 (150-450); RBC Distribution Width CV 14.3 % (11.6-14.6); RBC Distribution Width SD 48.2 fl (35.1-43.9); Red Blood Count 5.52 M/mm3 (4.2-5.4)
[2022-11-20] MEDS: DiphenhydrAMINE 50 MG/ML Syringe 25 MG IV (20:48)
[2022-11-20 20:49] LABS: Amorphous Sediment 1+ URATE; Red Blood Cells-Urine 0-5 SEEN /hpf (0-5); Squamous Epithelial Cells - UA 0-5 SEEN /hpf (5-10); White Blood Cells 5-10 SEEN /hpf (0-5)
[2022-11-20 21:11] LABS: ALB/GLOB Ratio 0.5 RATIO (0.9-2.4); AST(SGOT) 85 U/L (15-37); Alanine Aminotransfer ALT/SGPT 76 U/L (13-56); Albumin, Serum 2.2 g/dL (3.2-5.0); Alkaline Phosphatase 171 U/L (45-117); Anion Gap 14 (5-15); BUN 5 mg/dL (7-18); BUN/Creat Ratio 4.8 RATIO (10-20); Calcium,Total 9.3 mg/dL (8.5-10.1); Chloride 101 mmol/L (98-107); Creatinine, Serum 1.04 mg/dL (0.55-1.02); EST Glomerular Filtration Rate 56 mL/min (>60); Est Glom Filt Rate - Afr Amer 68 mL/min (>60); Estimated Creatinine Clearance 42.08 ml/min; Globulin 4.4 g/dL (2.2-4.2); Glucose 198 mg/dL (74-106); Lipase < 10 U/L (13-75); Protein, Total 6.6 g/dL (6.4-8.2); Sodium Level 139 mmol/L (136-145)
--- NOTE | 2022-11-20 21:15 | ED.RN ---
pt did not want to stay, wants to go home, tried to convince her to stay, having an anxiety attack, benadryl given. pt did not want the monitor leads on and would not keep her arm straight to get the ivf. kept saying she wanted to leave, finally the agreed to take her home. ama papers signed. iv dc'd
[2022-11-20 21:19] VITALS: BP 152/81
== END 2022-11-20 21:38 | disposition left against medical advice (07) ==
PROVIDERS: Physician Assistant; Emergency Provider Emergency Medicine; PCP Family Medicine; Visit Provider Emergency Medicine
DX: R11.2 Nausea with vomiting, unspecified (principal); I10 Essential (primary) hypertension; I25.10 Atherosclerotic heart disease of native coronary artery without angina pectoris; R19.7 Diarrhea, unspecified; E78.5 Hyperlipidemia, unspecified; G47.33 Obstructive sleep apnea (adult) (pediatric); J45.909 Unspecified asthma, uncomplicated; F17.210 Nicotine dependence, cigarettes, uncomplicated
CPT/HCPCS: 80053; 81001; 83690; 85025; 96361; 96374; 96375; 99285; J7030; P9612; A4216

== ENCOUNTER → 2022-12-09 | Outpatient (CLI) | payer MEDICARE, OTHER, SELFPAY ==
[2022-12-16 13:07] LABS: Pancreatic Elastase, Fecal 66 (>200)
[2022-12-20 18:07] LABS: Calprotectin, Stool 19 ug/g (0-120); Fats, Neutral Normal (.); Fats, Total Normal (.)
== END | disposition home or self-care (01) ==
PROVIDERS: PCP Family Medicine; Visit Provider Internal Medicine Gastroenterology
DX: R11.2 Nausea with vomiting, unspecified (principal); K58.9 Irritable bowel syndrome, unspecified
CPT/HCPCS: 82274; 82653; 82705; 83630; 83993; 87177; 87209; 87329; 87493

== ENCOUNTER 2023-09-22 06:54 | Day surgery (SDC) | payer MEDICARE, OTHER, SELFPAY ==
[2023-09-22] VITALS (11 sets, daily range): BP systolic 138–178; BP diastolic 74–93; PULSE 85–98; RESP 16–20; TEMP 36.2–36.9; O2SAT 92–97; BMI 25.2
[2023-09-22] MEDS: Lactated Ringers 1,000 ML 15 ML IV (07:22)
[2023-09-22] MEDS: Ipratropium/Albuterol Sulfate 3 ML AMPUL.NEB INHALATION (07:45)
--- NOTE | 2023-09-22 07:58 | PCM.PRE.AN2 ---
ASA Classification* ASA Classification ASA Classification: 3 Assessment & Plan Anesthesia* Anesthesia Assessment Anesthesia Assessment: Discussed sedation and/or anesthesia options, risks, benefits, and alternatives with patient/parents/legal guardian/POA. Questions invited. The patient/parents/legal guardian/POA seems to understand and agrees to proceed with anesthesia plan. Reviewed the physical assessment, medical history, allergy history and patient home medications list prior to surgery/procedure/anesthetic and documented any changes. Performed airway and anesthesia risk assessments. Anesthesia Type Anesthesia Type: General Anesthesia Focused Assessment* Temperature: 98.5 F Pulse Rate: 85 Blood Pressure: 158/82 Respiratory Rate: 16 Pulse Ox: 93 Airway Assessment Mouth opens: >3 cm Mallampati Score: II Focused Labs Anesthesia Preop lab: CBC WBC 19.0 K/mm3 (4.4-11.0) H 11/20/22 20:20 RBC 5.52 M/mm3 (4.2-5.4) H 11/20/22 20:20 Hgb 16.9 g/dL (12.0-15.0) H 11/20/22 20:20 Hct 50.5 % (37-47) H 11/20/22 20:20 Plt Count 530 K/mm3 (150-450) H 11/20/22 20:20 CHEMISTRY Potassium 4.0 mmol/L (3.5-5.1) 11/20/22 20:20 Sodium 139 mmol/L (136-145) 11/20/22 20:20 BUN 5 mg/dL (7-18) L 11/20/22 20:20 Creatinine 1.04 mg/dL (0.55-1.02) H 11/20/22 20:20 Glucose 198 mg/dL (74-106) H 11/20/22 20:20 POC Glucose 130 mg/dL (70-110) H 09/21/12 22:00 TSH 1.07 uIU/mL (0.358-3.74) 10/16/15 15:35 COAG PT 12.5 SECONDS (11.7-14.9) 09/28/21 08:42 Pre-Assessment Diagnosis/Proposed Procedure Planned Operative Procedure(s): Insertion, Pain Pump,Implantable Anesthesia History Anesthesia History - drama director: Anesthesia History - drama director Hx Hospitalization No 09/14/23 10:28 Any Problems With Anesthesia No 09/14/23 10:28 Cholinesterase deficiency No 09/14/23 10:28 You/Your Family Experience No 09/14/23 10:28 fever (hyperthermia) with Relationship Recent Exposure to Contagious No 09/22/23 07:18 Disease Does patient have nerve No 09/14/23 10:28 stimulator Patient instructed to have device shut off --Does patient have Pacemaker No 09/22/23 07:18 or ICD? When Was Last Pacemaker Check QUESTION #4 FULL TEXT: You/Your Family Experience fever (hyperthermia) with Anesthesia Last Oral Intake Last Oral intake: Last Oral Intake NPO since 22:00 09/22/23 07:18 Meds taken in AM with sips of water? Meds patient instructed to take am of surgery PONV PONV - drama director: PONV - drama director Female Yes 09/14/23 10:28 HX of Motion Sickness Yes 09/14/23 10:28 HX of N/V After Surgery No 09/14/23 10:28 Non-Smoker No 09/14/23 10:28 Duration of Surgery greater Yes 09/14/23 10:28 than 60 minutes Number of Risk Factors 3 09/14/23 10:28 PONV Score Moderate Risk 09/14/23 10:28 Height & Weight Height & Weight: Anesthesia: Height & Weight Height 5 ft 2 in 09/22/23 07:18 Weight: 62.6 kg 09/22/23 07:18 Body Mass Index (BMI) 25.2 09/22/23 07:18 Respiratory Assessment Respiratory Assessment - drama director: Respiratory Tract Infection Hx - drama director Hx Respiratory Tract Infection No 09/14/23 10:28 STOP Sleep Apnea STOP Sleep Apnea - drama director: STOP Sleep Apnea - drama director Hx Hypertension Yes: CONTROLLED WITH MED 09/14/23 10:28 Hx Sleep Apnea No 09/14/23 10:28 CPAP BIPAP Do you snore loudly (louder Yes 09/14/23 10:28 than talking or can be heard Do you often feel tired/ No 09/14/23 10:28 fatigued/ sleepy during daytime? Has anyone observed you stop No 09/14/23 10:28 breathing during sleep? STOP Results Positive 09/14/23 10:28 QUESTION #5 FULL TEXT : Do you snore loudly (louder than talking or can be heard through closed doors)? Tobacco Use History Tobacco Use History - drama director: Tobacco Use History - drama director Tobacco Use Cigarettes 04/09/20 09:05 Smoking Status Current every day smoker 09/14/23 10:28 Hx Tobacco Use Yes 09/14/23 10:28 Years Smoking Packs Smoked per Day 2 09/14/23 10:28 Smoking Cessation Date was within the last 15 years Hx Smoking Cessation Date Hx Smoking Cessation Counseling Hematologic Medial History Hematologic Hx - drama director: Hematologic Medical Hx - feeder/folder Hx of Blood Transfusion No 09/14/23 10:28 Hx of Transfusion in last 3 No 09/14/23 10:28 Months Date of Last Transfusion (if within last 3 months) Ever experience any problems No 09/14/23 10:28 with transfusion(s)? Specify any problems Hx of Preganancy in last 3 N/A 09/14/23 10:28 Months Nurse Filling Out Transfusion NBUCHER 09/14/23 10:28 & Questions: Date: 09/14/23 09/14/23 10:28 Time: 10:32 09/14/23 10:28 Patient unable to answer at this time (ie. confused, unrespo /Reproduction History /Reproductive History - drama director: /Reproductive Hx- drama director Hx Now No 09/14/23 10:28 Gestational Age (in weeks): EDC: Hx Hx Para Hx Section SAB No 09/14/23 10:28 Active Medications Active Medications: Current Medications Generic Name Dose Route Start Last Admin Trade Name Bryonq PRN Reason Stop Dose Admin Lactated Ringer's 1,000 mls @ 15 mls/hr 09/22/23 07:15 09/22/23 07:22 IV 15 mls/hr .Q48H ARVIND Administration Cefazolin Sodium 2 gm/ Sodium 110 mls @ 150 mls/hr 09/22/23 07:30 Chloride IV 09/22/23 08:13 PREOP ONE PFSH Medical History Wears glasses Depression Arthritis Interstitial cystitis High cholesterol No natural teeth History of IBS History of Crohn's disease Smoker Shortness of breath on exertion Leg cramps History of stress test History of echocardiogram Cardiology follow-up encounter Mood disorder Low vitamin B12 level Dysthymia Esophagitis Carpal tunnel syndrome Anxiety History of small bowel obstruction Diarrhea Nausea and vomiting Acute constipation Abdominal pain Tobacco abuse Hyperlipidemia Infarction of colon Insomnia Vitamin D deficiency Panic disorder Lung nodules HUBERT (obstructive sleep apnea) GERD (gastroesophageal reflux disease) Centrilobular emphysema Essential hypertension Atherosclerosis of coronary artery of [place] heart without angina pectoris COPD (chronic obstructive pulmonary disease) Asthma Fibromyalgia Migraines Severe depression History of fibromyalgia History of chronic back pain History of ulcerative colitis History of migraine Generalized anxiety disorder History of DVT (deep vein thrombosis) Slade's esophagus Home Medications ?Medication ?Instructions ?Recorded ?Last Taken ?Type albuterol sulfate 90 mcg/actuation 2 puff inhalation Q6H PRN PRN sob 05/08/15 04/14/20 History aerosol inhaler (ProAir HFA) atorvastatin 80 mg tablet 80 mg PO DAILY 05/08/15 04/14/20 History pantoprazole 40 mg tablet,delayed 40 mg PO BID 05/08/15 04/14/20 History release quetiapine 300 mg tablet (Seroquel) 300 mg PO QHS 05/08/15 04/14/20 History galcanezumab-gnlm 120 mg/mL 120 mg SQ QMONTH 06/12/18 04/14/20 History subcutaneous syringe (Emgality) multivitamin 1 ea PO DAILY 06/12/18 04/14/20 History albuterol sulfate 2.5 mg/3 mL 2.5 mg inhalation Q4H PRN 09/28/21 Unknown History (0.083 %) solution for nebulization shortness of breath calcium carbonate (Calcium 600) 600 mg PO BID 09/28/21 Unknown History cholecalciferol (vitamin D3) 50 50 mcg PO DAILY 09/28/21 Unknown History mcg (2,000 unit) tablet citalopram 40 mg tablet 40 mg PO DAILY 09/28/21 Unknown History nitroglycerin 0.4 mg sublingual 0.4 mg sublingual Q5M PRN Chest 09/28/21 Unknown History tablet Pain prochlorperazine maleate 10 mg 10 mg PO Q6H PRN Nausea 09/28/21 Unknown History tablet buspirone 15 mg tablet 15 mg PO BID 11/18/21 Unknown History cyclobenzaprine 10 mg tablet 10 mg PO BID PRN muscle spasm 11/18/21 Unknown History hydroxyzine HCl 25 mg tablet 25 mg PO QHS 11/18/21 Unknown History omega-3 fatty acids 2,000 mg PO DAILY 11/18/21 Unknown History hydrocodone 7.5 mg-acetaminophen 1 tab PO TID PRN pain 08/04/23 Unknown History 325 mg tablet ipratropium 0.5 mg-albuterol 3 mg 3 ml inhalation 4X/DAY PRN 08/04/23 Unknown History (2.5 mg base)/3 mL nebulization shortness of breath or wheezing soln metoprolol succinate 50 mg 50 mg PO QDAY 08/04/23 Unknown History tablet,extended release 24 hr Allergy/AdvReac Type Severity Reaction Status Date / Time morphine Allergy Unknown unknown Verified 09/22/23 07:17 trazodone Allergy Unknown jittery Verified 09/22/23 07:17 Antihistamines - Alkylamine Allergy Hives Verified 09/22/23 07:17 ondansetron HCl (From Zofran) Allergy Hives Verified 09/22/23 07:17 promethazine HCl (From Allergy Hives Verified 09/22/23 07:17 Phenergan) adhesive AdvReac Intermediate Other Verified 09/22/23 07:17 losartan AdvReac Unknown shaking Verified 09/22/23 07:17 and elevated BP zolpidem (From Ambien) AdvReac Unknown vivid Verified 09/22/23 07:17 dreams and night sweats lisinopril AdvReac cough Verified 09/22/23 07:17 Family History Father Cancer CVA (cerebral vascular accident) Mother Myocardial infarction Sister Heart disease Diabetes CAD (coronary artery disease) Surgical History History of bilateral cataract extraction History of oral surgery (~05/2023) History of left heart catheterization (03/2010) History of salpingo-oophorectomy History of shoulder surgery Hx of LASIK History of hysterectomy History of esophagogastroduodenoscopy (EGD) History of dilatation and curettage History of cystoscopy History of partial colectomy History of colonoscopy History of coronary artery stent placement (01/25/08) History of bilateral carpal tunnel release History of appendectomy Social History household members: spouse Smoking Status: Current every day smoker tobacco type: cigarettes alcohol intake: never substance use type: does not use caffeine: Yes Type: carbonated beverages Number of servings: 4 Review of Systems (Anesthesia) ROS Narrative System reviewed and no additional complaints, except as documented.
--- NOTE | 2023-09-22 09:00 | RAD_ITS ---
PROCEDURE: Pain pump insertion. DATE OF EXAMINATION: September 22, 2023. INDICATION: Female, 68 years old. Chronic back pain. FLUOROSCOPY TIME (if supplied): (2 minutes and 1 second) minutes/seconds. 45.85 mGy. 6 images were submitted. Intraoperative imaging provided for neural stimulator insertion. The tip is at the T7-T8 level. RAD/Spine 1 View Any Level IMPRESSION: Fluoroscopic services provided for insertion of the neural stimulator device. Electronically Signed: George Hector MD at 14:58 EDT ,
[2023-09-22] MEDS: Lidocaine 0.5% (50 ml) 50 ML Vial (09:38)
[2023-09-22] MEDS: Bupiv/Epi 0.25% 30 ML Vial (09:39)
--- NOTE | 2023-09-22 10:17 | PCM.POST.ANE ---
Anesthesia: Postop Eval I Current Vital Signs Temperature: 97.1 F Pulse Rate: 93 Blood Pressure: 156/74 Respiratory Rate: 20 Pulse Ox: 97 Assessment Airway patent: Yes Spontaneous unlabored respirations: Yes nausea: No Vomiting: No Anesthesia Complication: No Fluid Hydration Crystalloid volume administer (ml): 1,000 Total IV fluid infused: 1,000 Progress Note Anesthesia document: Postop Eval 1 completed: Yes
--- NOTE | 2023-09-22 12:48 | POSTOPAN2_ITS ---
Anesthesia Postop Eval I Sum Postop Eval Completion status Anesthesia document: Postop Eval 1 completed: Yes Anesthesia Postop Eval I Summary Anesthesia Postop Eval I Summary: Anesthesia Postop Eval I: Assessment Summary Airway patent Yes 09/22/23 10:17 DETENTION ATTENDANT.CSIR Spontaneous unlabored Yes 09/22/23 10:17 DETENTION ATTENDANT.CSIR respirations Mental status nausea No 09/22/23 10:17 DETENTION ATTENDANT.CSIR Vomiting No 09/22/23 10:17 DETENTION ATTENDANT.CSIR Anesthesia Postop Eval I: Fluid Summary Crystalloid volume administer 1,000 09/22/23 10:17 DETENTION ATTENDANT.CSIR (ml) Colloids volume administered ( ml) Blood Product volume administered (ml) Total IV fluid infused 1,000 09/22/23 10:17 DETENTION ATTENDANT.CSIR Anesthesia Postop Eval I: Summary Notes Anesthesia Complication No 09/22/23 10:17 DETENTION ATTENDANT.CSIR Anesthesia Complication Comment: Post-operative progress note Anesthesia: Postop Eval II Evaluation Mental status: Awake Pain Level: 0 nausea: No Vomiting: No
--- NOTE | 2023-09-22 12:48 | PCM.POSTANE2 ---
Anesthesia Postop Eval I Sum Postop Eval Completion status Anesthesia document: Postop Eval 1 completed: Yes Anesthesia Postop Eval I Summary Anesthesia Postop Eval I Summary: Anesthesia Postop Eval I: Assessment Summary Airway patent Yes 09/22/23 10:17 CLINICAL ENGINEERING MANAGER.CSIR Spontaneous unlabored Yes 09/22/23 10:17 CLINICAL ENGINEERING MANAGER.CSIR respirations Mental status nausea No 09/22/23 10:17 CLINICAL ENGINEERING MANAGER.CSIR Vomiting No 09/22/23 10:17 CLINICAL ENGINEERING MANAGER.CSIR Anesthesia Postop Eval I: Fluid Summary Crystalloid volume administer 1,000 09/22/23 10:17 CLINICAL ENGINEERING MANAGER.CSIR (ml) Colloids volume administered ( ml) Blood Product volume administered (ml) Total IV fluid infused 1,000 09/22/23 10:17 CLINICAL ENGINEERING MANAGER.CSIR Anesthesia Postop Eval I: Summary Notes Anesthesia Complication No 09/22/23 10:17 CLINICAL ENGINEERING MANAGER.CSIR Anesthesia Complication Comment: Post-operative progress note Anesthesia: Postop Eval II Evaluation Mental status: Awake Pain Level: 0 nausea: No Vomiting: No
== END 2023-09-22 11:10 | disposition home or self-care (01) ==
LOC: SDC 06:57 → AC 06:59
PROVIDERS: PCP Family Medicine; Referring Provider Anesthesiology Pain Medicine; Visit Provider Anesthesiology Pain Medicine
PROC: (CPT 63685; principal; 2023-09-22 08:15)
DX: M54.16 Radiculopathy, lumbar region (principal); J44.9 Chronic obstructive pulmonary disease, unspecified; G89.4 Chronic pain syndrome; I25.10 Atherosclerotic heart disease of native coronary artery without angina pectoris; I10 Essential (primary) hypertension; E78.00 Pure hypercholesterolemia, unspecified; F17.210 Nicotine dependence, cigarettes, uncomplicated; Z95.5 Presence of coronary angioplasty implant and graft; Z79.02 Long term (current) use of antithrombotics/antiplatelets; Z79.899 Other long term (current) drug therapy
CPT/HCPCS: 63685; 63650; 00300; 72020; 76000; 94640; C1778; J7120

== ENCOUNTER 2024-09-06 07:53 | Emergency (ER) | payer MEDICARE, OTHER, SELFPAY ==
[2024-09-06 07:54] VITALS: BP 132/61; PULSE 84; RESP 16; TEMP 36.6; O2SAT 95; BMI 26.4
--- NOTE | 2024-09-06 08:04 | ED.RN ---
pt has had pain since monday, seen her pain management dr yesterday who prescribed steroids. pt states this pain is more than she has had in the past.
--- NOTE | 2024-09-06 08:05 | EKG12_ITS ---
Test Reason : Blood Pressure : */* mmHG Vent. Rate : 80 BPM Atrial Rate : 80 BPM P-R Int : 162 ms QRS Dur : 104 ms QT Int : 420 ms P-R-T Axes : 47 5 84 degrees QTcB Int : 484 ms Normal sinus rhythm ST & T wave abnormality, consider lateral ischemia QTcB >= 480 msec Abnormal ECG Confirmed by JOY MAN, JESIKA ([id number]), editor & co founder MADELAINE AGUDELO ([id number]) on 09/09/2024 7:03:45 AM Referred By: Confirmed By: JESIKA HAMILTON MD
--- NOTE | 2024-09-06 08:05 | CT_ITS ---
PROCEDURE: ABDOMEN/PELVIS W IV CONT ONLY 09/06/2024 REASON FOR EXAM: LOW BACK PAIN TECHNIQUE: ABDOMEN/PELVIS W IV CONT ONLY Coronal and Sagittal reconstruction series were provided. CONTRAST: Isovue 370 VOLUME: 100 mL One or more dose reduction techniques were used (e.g., Automated exposure control, adjustment of the mA and/or kV according to patient size, use of iterative reconstruction technique. RADIATION DOSE SUMMARY: CTDlvol: 23.27 mGy DLP: 498.35 mGycm COMPARISON: None FINDINGS: Lung bases: Mild dependent atelectasis Liver: Normal size. No mass. Gallbladder: Unremarkable Spleen: Normal size. Pancreas: Diffuse fatty atrophy. Adrenals: Unremarkable Kidneys: No obstructive uropathy or suspicious solid renal lesion, there are simple bilateral renal cysts. Bladder: Unremarkable aside from a bubble of air in the nondependent bladder which may be from recent catheterization. Reproductive Organs: Surgically absent Bowel: Evidence of previous surgery in the hepatic flexure, no anastomotic leak is noted but of submucosal thickening and edema suggesting a focal colitis. There are scattered colonic diverticula without CT evidence of acute diverticulitis. Appendix: Normal appendix seen on axial images 53 through 77. Lymph nodes: No suspicious mesenteric or retroperitoneal lymph nodes Vasculature: Peripheral calcifications in the abdominal aorta without aneurysm. Peritoneum / Retroperitoneum: No free fluid or air Bones: Degenerative bony changes Small fat containing ventral hernia to the right of midline CT/Abdomen/Pelvis W IV Cont ONLY IMPRESSION: Focal colitis in the region of the hepatic flexure with submucosal thickening a nd edema with a minimal amount of pericolonic inflammatory stranding. No perforation or abscess No suspicious solid organ abnormalities, simple bilateral renal cysts, no speci fic follow-up needed. Scattered colonic diverticula, no CT evidence of acute diverticulitis Degenerative bony changes Diffuse atherosclerosis Reading Location: [id number]
--- NOTE | 2024-09-06 08:06 | EX.ED.DYSGE1 ---
HPI History of Present Illness Chief Complaint: Back Narrative Narrative: Patient is a 69-year-old female with past medical history of depression, chronic back pain, IBS, Crohn's, vitamin B12 deficiency, esophagitis, hyperlipidemia, tobacco use, HUBERT, hypertension, COPD, fibromyalgia who presented to the emergency department chief complaint of back pain. Patient states that last Monday she had a flareup of her back pain and notes that it has been progressively worsening. She states that she followed up with her pain management physician recently and was told that this was a flareup of her fibromyalgia. She states that the pain has significantly worsened prompting her to come to the emergency department. States that she has tried several [id number] medications without any relief. States that last Monday when this all started she did not do anything specifically to aggravate her back. [facility] member bedside did note that she has been more active than normal but she is not bending over and picking up a thing heavy. Patient states that she is urinating normally for self and having normal bowel movements. [facility] Medical History Wears glasses Depression Arthritis Interstitial cystitis High cholesterol No natural teeth History of IBS History of Crohn's disease Smoker Shortness of breath on exertion Leg cramps History of stress test History of echocardiogram Cardiology follow-up encounter Mood disorder Low vitamin B12 level Dysthymia Esophagitis Carpal tunnel syndrome Anxiety History of small bowel obstruction Diarrhea Nausea and vomiting Acute constipation Abdominal pain Tobacco abuse Hyperlipidemia Infarction of colon Insomnia Vitamin D deficiency Panic disorder Lung nodules HUBERT (obstructive sleep apnea) GERD (gastroesophageal reflux disease) Centrilobular emphysema Essential hypertension Atherosclerosis of coronary artery of [place] heart without angina pectoris COPD (chronic obstructive pulmonary disease) Asthma Fibromyalgia Migraines Severe depression History of fibromyalgia History of chronic back pain History of ulcerative colitis History of migraine Generalized anxiety disorder History of DVT (deep vein thrombosis) Slade's esophagus Home Medications ?Medication ?Instructions ?Recorded ?Last Taken ?Type albuterol sulfate 90 mcg/actuation 2 puff inhalation Q6H PRN PRN sob 05/08/15 04/14/20 History aerosol inhaler (ProAir HFA) atorvastatin 80 mg tablet 80 mg PO DAILY 05/08/15 04/14/20 History pantoprazole 40 mg tablet,delayed 40 mg PO BID 05/08/15 04/14/20 History release quetiapine 300 mg tablet (Seroquel) 300 mg PO QHS 05/08/15 04/14/20 History galcanezumab-gnlm 120 mg/mL 120 mg SQ QMONTH 06/12/18 04/14/20 History subcutaneous syringe (Emgality) multivitamin 1 ea PO DAILY 06/12/18 04/14/20 History albuterol sulfate 2.5 mg/3 mL 2.5 mg inhalation Q4H PRN 09/28/21 Unknown History (0.083 %) solution for nebulization shortness of breath calcium carbonate (Calcium 600) 600 mg PO BID 09/28/21 Unknown History cholecalciferol (vitamin D3) 50 50 mcg PO DAILY 09/28/21 Unknown History mcg (2,000 unit) tablet citalopram 40 mg tablet 40 mg PO DAILY 09/28/21 Unknown History nitroglycerin 0.4 mg sublingual 0.4 mg sublingual Q5M PRN Chest 09/28/21 Unknown History tablet Pain prochlorperazine maleate 10 mg 10 mg PO Q6H PRN Nausea 09/28/21 Unknown History tablet buspirone 15 mg tablet 15 mg PO BID 11/18/21 Unknown History cyclobenzaprine 10 mg tablet 10 mg PO BID PRN muscle spasm 11/18/21 Unknown History hydroxyzine HCl 25 mg tablet 25 mg PO QHS 11/18/21 Unknown History omega-3 fatty acids 2,000 mg PO DAILY 11/18/21 Unknown History hydrocodone 7.5 mg-acetaminophen 1 tab PO TID PRN pain 08/04/23 Unknown History 325 mg tablet ipratropium 0.5 mg-albuterol 3 mg 3 ml inhalation 4X/DAY PRN 08/04/23 Unknown History (2.5 mg base)/3 mL nebulization shortness of breath or wheezing soln metoprolol succinate 50 mg 50 mg PO QDAY 08/04/23 Unknown History tablet,extended release 24 hr dicyclomine 20 mg tablet 20 mg PO TID #20 tabs 09/06/24 Unknown Rx Allergy/AdvReac Type Severity Reaction Status Date / Time morphine Allergy Unknown unknown Verified 09/06/24 08:03 trazodone Allergy Unknown jittery Verified 09/06/24 08:03 Antihistamines - Alkylamine Allergy Hives Verified 09/06/24 08:03 ondansetron HCl (From Zofran) Allergy Hives Verified 09/06/24 08:03 promethazine HCl (From Allergy Hives Verified 09/06/24 08:03 Phenergan) adhesive AdvReac Intermediate Other Verified 09/06/24 08:03 losartan AdvReac Unknown shaking Verified 09/06/24 08:03 and elevated BP zolpidem (From Ambien) AdvReac Unknown vivid Verified 09/06/24 08:03 dreams and night sweats lisinopril AdvReac cough Verified 09/06/24 08:03 Family History Father Cancer CVA (cerebral vascular accident) Mother Myocardial infarction Sister Heart disease Diabetes CAD (coronary artery disease) Surgical History History of bilateral cataract extraction History of oral surgery (~05/2023) History of left heart catheterization (03/2010) History of salpingo-oophorectomy History of shoulder surgery Hx of LASIK History of hysterectomy History of esophagogastroduodenoscopy (EGD) History of dilatation and curettage History of cystoscopy History of partial colectomy History of colonoscopy History of coronary artery stent placement (01/25/08) History of bilateral carpal tunnel release History of appendectomy Social History household members: spouse Smoking Status: Current every day smoker tobacco type: cigarettes alcohol intake: never substance use type: does not use caffeine: Yes Type: carbonated beverages Number of servings: 4 ROS ROS ED ROS Narrative Constitutional: Denies any fevers, chills, headaches Eyes: Denies double vision Cardiovascular: Denies chest pain Respiratory: Shortness of breath Abdomen: Denies abdominal pain nausea vomit diarrhea : Denies urinary symptoms Neurological: Denies any numbness, weakness, tingling Musculoskeletal: Complains of back pain as noted above Skin: Denies any rashes or lesions EXAM Physical Exam Narrative Exam Narrative: General: Patient was lying in bed rest comfortably did not appear to be in acute distress Head: Atraumatic, normocephalic Eyes: PERRL bilaterally, EOMI bilaterally, no conjunctival injection noted Neck: Soft, supple, trachea midline Cardiovascular: Regular rate and rhythm Respiratory: Clear to auscultation bilaterally Abdomen: Soft, nondistended, nontender to palpation Musculoskeletal: Tenderness palpation midline of the lower lumbar spine no step-offs or deformities noted, patient also had tenderness to palpation over the quadratus lumborum region bilaterally Extremities: +4/5 strength noted in the bilateral upper and lower extremities Neurological: Patient following commands knew that she was at [facility] the year is 2024 no saddle anesthesia noted Skin: Warm, dry contact no rashes or lesions noted Const Vital Signs: 09/06/24 07:54 Temperature 97.9 F Temperature Source Oral Pulse Rate 84 Respiratory Rate 16 Blood Pressure 132/61 H Blood Pressure Mean 84 Pulse Ox 95 Oxygen Delivery Method Room Air MDM MDM MDM Narrative Medical decision making narrative: Patient is a 61-year-old female who presented to the emergency department with a chief complaint of low back pain that feels different than her normal back pain she states. On the differential diagnosis includes but not limited to urolithiasis, UTI, pyelonephritis, AAA. Once workup is obtained and reviewed she will be reevaluated. Patient be IV fluids Toradol and Norflex. Patient BMP reviewed showed a sodium 139, calcium normal 3.6, creatinine was 0.79. Patient's CT ab and pelvis IV contrast reviewed showed focal colitis in the region of the hepatic flexure with some mucosal thickening and edema with a minimal amount of pericolonic inflammatory stranding no perforation or abscess. No suspicion for solid organ abnormalities scattered colonic diverticuli no evidence of diverticulitis. Degenerative bony changes. Diffuse atherosclerosis noted. Patient's EKG reviewed showed sinus rhythm with a rate of 80 bpm. This was compared to EKG from October 16, 2015 and is largely unchanged On reevaluation the patient she would like to go home at this point in time. Patient was advised to start with a bland diet and advance as tolerated. She began prescriptions for Bentyl and was advised to return with worsening symptoms or concerns. She is agreeable to plan all question concerns answered she was discharged home in stable condition. Lab Data Labs: Laboratory Results - last 24 hr 09/06/24 09/06/24 08:12 09:27 Sodium 139 Potassium 3.6 Chloride 101 Carbon Dioxide 24.8 Anion Gap 13 BUN 8 Creatinine 0.79 Estim Creat Clear Calc 59.81 Est GFR (MDRD) Non-Af 82 BUN/Creatinine Ratio 9.6 L Glucose 107 H Calcium 8.8 Urine Color Yellow Urine Clarity Clear Urine pH 7.0 Ur Specific [place] 1.010 Urine Protein 15 H Urine Glucose (UA) Normal Urine Ketones Negative Urine Occult Blood Negative Urine Nitrite Negative Urine Bilirubin Negative Urine Urobilinogen Normal Ur Leukocyte Esterase 100 H Urine RBC 0 SEEN Urine WBC 0-5 SEEN Ur Squamous Epith Cells 0-5 SEEN Urine Bacteria 0 SEEN Urine Mucus 0 SEEN Radiography Diagnostic Testing: Clinical Impression(s) from Imaging Studies Abdomen/Pelvis CT 09/06/24 08:05 IMPRESSION: Focal colitis in the region of the hepatic flexure with submucosal thickening and edema with a minimal amount of pericolonic inflammatory stranding. No perforation or abscess No suspicious solid organ abnormalities, simple bilateral renal cysts, no specific follow-up needed. Scattered colonic diverticula, no CT evidence of acute diverticulitis Degenerative bony changes Diffuse atherosclerosis Reading Location: [facility] Discharge Plan Triage Chief Complaint: Back ED Provider: Jameel Valdez Dx/Rx/DC Orders Clinical Impression: Back pain, Colitis, History of fibromyalgia, COPD (chronic obstructive pulmonary disease) Prescriptions: New dicyclomine 20 mg tablet 20 mg PO TID Qty: 20 0RF No Action hydroxyzine HCl 25 mg tablet 25 mg PO QHS buspirone 15 mg tablet 15 mg PO BID ipratropium-albuterol 0.5 mg-3 mg(2.5 mg base)/3 mL solution for nebulization 3 ml inhalation 4X/DAY PRN (Reason: shortness of breath or wheezing) hydrocodone-acetaminophen 7.5-325 mg tablet 1 tab PO TID PRN (Reason: pain) metoprolol succinate 50 mg tablet extended release 24 hr 50 mg PO QDAY atorvastatin 80 MG tablet 80 mg PO DAILY quetiapine [Seroquel] 300 MG tablet 300 mg PO QHS pantoprazole 40 MG tablet 40 mg PO BID albuterol sulfate [ProAir HFA] 1 PUFF inhaler 2 puff inhalation Q6H PRN PRN (Reason: sob) multivitamin 1 EACH tablet 1 ea PO DAILY Emgality Syringe 120 MG/ML syringe 120 mg SQ QMONTH albuterol sulfate 2.5 mg /3 mL (0.083 %) Solution For Nebulization 2.5 mg INHALATION Q4H PRN (Reason: shortness of breath) citalopram 40 mg tablet 40 mg PO DAILY prochlorperazine maleate 10 mg Tablet 10 mg PO Q6H PRN (Reason: Nausea) calcium carbonate [Calcium 600] 600 mg calcium (1,500 mg) Tablet 600 mg PO BID nitroglycerin 0.4 mg Tablet, Sublingual 0.4 mg SUBLINGUAL Q5M PRN (Reason: Chest Pain) Rx Instructions: do not exceed 3 doses per episode cholecalciferol (vitamin D3) 50 mcg (2,000 unit) Tablet 50 mcg PO DAILY omega-3 fatty acids Capsule 2,000 mg PO DAILY cyclobenzaprine 10 mg tablet 10 mg PO BID PRN (Reason: muscle spasm) Primary Care Provider: Lauro Martinez Referrals: Lauro Martinez MD [Primary Care Provider] - Activity Restrictions/Additional Instructions: Start with a bland diet and advance as tolerated. Use Bentyl/dicyclomine as prescribed. Follow-up your doctor does not be setting. Your blood work did not show any acute findings and your CT scan showed evidence of colitis. Return with worsening symptoms or any other concerns Print Language: Slovak Disposition Disposition: Home, Self Care
[2024-09-06] MEDS: 0.9% Normal Saline (1000mL) 1,000 ML 999 ML IV (08:16)
[2024-09-06] MEDS: Orphenadrine 60 MG/2 ML Ampul 30 MG IV (08:18)
[2024-09-06 09:24] LABS: Anion Gap 13 (5-15); BUN 8 mg/dL (4-19); BUN/Creat Ratio 9.6 RATIO (10-20); Calcium,Total 8.8 mg/dL (7.6-11.0); Carbon Dioxide 24.8 mmol/L (21.0-32.0); Chloride 101 mmol/L (98-108); Estimated Creatinine Clearance 59.81 ml/min (50-250); Glucose 107 mg/dL (70-99); Potassium 3.6 mmol/L (3.3-5.1)
[2024-09-06 09:32] LABS: Mucous, Urine 0 SEEN /hpf (<or=2+); Red Blood Cells-Urine 0 SEEN /hpf (0-5)
[2024-09-06 09:47] LABS: Color, Urine Yellow (Yellow); Glucose, Dipstick Normal (Normal); Ketone-Dipstick Negative (Negative); Leukocyte Esterase-Dipstick 100 /ul (Negative); Nitrite-Dipstick Negative (Negative); Occult Blood-Urine Negative /ul (Negative); Protein-Dipstick 15 mg/dl (Negative); Specific Gravity, Urine 1.010 (1.002-1.030); Urine Bilirubin Dipstick Negative (Negative)
[2024-09-06 09:55] LABS: Squamous Epithelial Cells - UA 0-5 SEEN /hpf (5-10)
[2024-09-06 11:20] VITALS: BP 146/87; PULSE 87; RESP 18; TEMP 36.4; O2SAT 92
== END 2024-09-06 11:21 | disposition home or self-care (01) ==
PROVIDERS: Emergency Provider Emergency Medicine; PCP Family Medicine; Visit Provider Emergency Medicine
DX: M54.9 Dorsalgia, unspecified (principal); J44.9 Chronic obstructive pulmonary disease, unspecified; I10 Essential (primary) hypertension; F17.210 Nicotine dependence, cigarettes, uncomplicated; M79.7 Fibromyalgia; G89.29 Other chronic pain; E53.8 Deficiency of other specified B group vitamins; Z90.710 Acquired absence of both cervix and uterus; Z82.49 Family history of ischemic heart disease and other diseases of the circulatory system; Z86.718 Personal history of other venous thrombosis and embolism; G47.33 Obstructive sleep apnea (adult) (pediatric); I25.10 Atherosclerotic heart disease of native coronary artery without angina pectoris; E78.5 Hyperlipidemia, unspecified; Z95.5 Presence of coronary angioplasty implant and graft; R06.02 Shortness of breath; K52.9 Noninfective gastroenteritis and colitis, unspecified
CPT/HCPCS: 74177; 80048; 81001; 93005; 96361; 96374; 96375; 99283; Q9967; A4216